=== PATIENT | male | born 1975 | race Caucasian/White ===

== ENCOUNTER 2019-01-27 15:18 | Inpatient (IN) | payer SELFPAY ==
[~2019-01-27] VITALS: Ht 175.3 cm; Wt 71.2 kg
[2019-01-27] VITALS (16 sets, daily range): BP systolic 136–173; BP diastolic 86–112
[2019-01-27] MEDS ORDERED: LIDOCAINE 1% Multi-Dose 20 ML VIAL. ONE (15:28)
[2019-01-27] MEDS ORDERED: IODIXANOL 320 MG/ML 100 ML VIAL. ONE (15:28)
--- NOTE | 2019-01-27 15:38 | PHYS DOC ---
Past Medical History Past Medical History: No Pertinent History Past Surgical History: Other Additional Past Surgical Histo: hand fracture repair Smoking: Cigarettes, 1 Pack Per Day Additional Information: 1 ppd Alcohol Use: None Drug Use: Methamphetamine Adult General Chief Complaint Chief Complaint: CHEST PAIN HPI HPI Patient is a 43 year old [f__sex] who presents with [] Review of Systems Review of Systems Constitutional: Denies fever or chills [] Eyes: Denies change in visual acuity, redness, or eye pain [] HENT: Denies nasal congestion or sore throat [] Respiratory: Denies cough or shortness of breath [] Cardiovascular: No additional information not addressed in HPI [] GI: Denies abdominal pain, nausea, vomiting, bloody stools or diarrhea [] : Denies dysuria or hematuria [] Musculoskeletal: Denies back pain or joint pain [] Integument: Denies rash or skin lesions [] Neurologic: Denies headache, focal weakness or sensory changes [] Endocrine: Denies polyuria or polydipsia [] All other systems were reviewed and found to be within normal limits, except as documented in this note. Current Medications Current Medications Current Medications Medications (Trade) Dose Ordered Sig/Lonnie Start Time Stop Time Status Last Admin Dose Admin Aspirin (Children'S Aspirin) 324 mg 1X ONCE 01/27/19 16:00 01/27/19 16:01 UNV Fentanyl Citrate (Fentanyl 2ml Vial) 100 mcg STK-MED ONCE 01/27/19 15:51 01/27/19 15:52 DC Heparin Sodium (Porcine) (Heparin Sodium) 10,000 unit STK-MED ONCE 01/27/19 15:51 01/27/19 15:52 DC Heparin Sodium/ Sodium Chloride 500 ml @ As Directed STK-MED ONCE 01/27/19 15:30 01/27/19 15:31 DC Iodixanol (Visipaque 320) 100 ml STK-MED ONCE 01/27/19 15:28 01/27/19 15:29 DC Lidocaine HCl (Lidocaine 1% 20ml Vial) 20 ml STK-MED ONCE 01/27/19 15:28 01/27/19 15:29 DC Lorazepam (Ativan Inj) 0.5 mg 1X ONCE 01/27/19 16:00 01/27/19 16:01 DC 01/27/19 15:42 0.5 MG Midazolam HCl (Versed) 2 mg STK-MED ONCE 01/27/19 15:51 01/27/19 15:52 DC Nitroglycerin (Nitroglycerin) 200 mcg STK-MED ONCE 01/27/19 15:51 01/27/19 15:52 DC Tirofiban/Sodium Chloride 100 ml @ As Directed STK-MED ONCE 01/27/19 16:08 01/27/19 16:09 DC Verapamil HCl (Verapamil) 5 mg STK-MED ONCE 01/27/19 15:51 01/27/19 15:52 DC Allergies Allergies Allergies Coded Allergies Type Severity Reaction Last Updated Verified No Known Drug Allergies 01/27/19 No Physical Exam Physical Exam Constitutional: Well developed, well nourished, no acute distress, non-toxic appearance. [] HENT: Normocephalic, atraumatic, bilateral external ears normal, oropharynx moist, no oral exudates, nose normal. [] Eyes: PERRLA, EOMI, conjunctiva normal, no discharge. [] Neck: Normal range of motion, no tenderness, supple, no stridor. [] Cardiovascular:Heart rate regular rhythm, no murmur [] Lungs & Thorax: Bilateral breath sounds clear to auscultation [] Abdomen: Bowel sounds normal, soft, no tenderness, no masses, no pulsatile masses. [] Skin: Warm, dry, no erythema, no rash. [] Back: No tenderness, no CVA tenderness. [] Extremities: No tenderness, no cyanosis, no clubbing, ROM intact, no edema. [] Neurologic: Alert and oriented X 3, normal motor function, normal sensory function, no focal deficits noted. [] Psychologic: Affect normal, judgement normal, mood normal. [] Current Patient Data Vital Signs Vital Signs Date Time Temp Pulse Resp B/P (MAP) Pulse Ox O2 Delivery O2 Flow Rate FiO2 01/27/19 15:22 97.5 82 20 174/111 (132) 99 Room Air 97.5 Lab Values Laboratory Tests Test 01/27/19 15:29 01/27/19 15:30 01/27/19 16:07 POC Troponin I 0.05 ng/ml (<0.08) Prothrombin Time 12.5 SEC (11.7-14.0) Prothrombin Time INR 1.0 (0.8-1.1) Sodium Level 140 mmol/L (136-145) Potassium Level 4.5 mmol/L (3.5-5.1) Chloride Level 103 mmol/L (98-107) Carbon Dioxide Level 24 mmol/L (21-32) Anion Gap 13 (6-14) Blood Urea Nitrogen 18 mg/dL (8-26) Creatinine 1.3 mg/dL (0.7-1.3) Estimated GFR (Cockcroft-Gault) 59.7 BUN/Creatinine Ratio 14 (6-20) Glucose Level 137 mg/dL (70-99) H Calcium Level 9.0 mg/dL (8.5-10.1) Magnesium Level 1.9 mg/dL (1.8-2.4) Total Bilirubin 0.4 mg/dL (0.2-1.0) Aspartate Amino Transferase (AST) 18 U/L (15-37) Alanine Aminotransferase (ALT) 27 U/L (16-63) Alkaline Phosphatase 89 U/L (46-116) Creatine Kinase 109 U/L (39-308) Creatine Kinase MB (Mass) 1.1 ng/mL (0.0-3.6) Creatine Kinase MB Relative Index 1.0 % (0-4) Troponin I Quantitative 0.058 ng/mL (0.000-0.055) RM-Zfj-G-Type Natriuretic Peptide 374 pg/mL (0-124) H Total Protein 7.8 g/dL (6.4-8.2) Albumin 3.6 g/dL (3.4-5.0) Albumin/Globulin Ratio 0.9 (1.0-1.7) L Lipase 101 U/L (73-393) Activated Clotting Time 225 sec (92-181) Laboratory Tests 01/27/19 15:30 EKG EKG [] Radiology/Procedures Radiology/Procedures @1524 NSR at 82bpm, ST elevation V1-V4, ST depression II, III, aVF Course & Med Decision Making Course & Med Decision Making Pertinent Labs and Imaging studies reviewed. (See chart for details) [] Dragon Disclaimer Dragon Disclaimer This electronic medical record was generated, in whole or in part, using a voice recognition dictation system. Departure Departure Impression: Primary Impression: STEMI (ST elevation myocardial infarction) Disposition: ADMITTED INPATIENT Admitting Physician: Other (RIFFEL) Condition: GUARDED Referrals: NO PCP (PCP) Scripts Magnesium Hydroxide (MILK OF MAGNESIA) 400 Mg/5 Ml Oral.susp 2400 MG PO PRN Q12HR PRN for CONSTIPATION for 30 Days, #120 MISC Prov: JAELYN TENORIO MD 01/29/19 Aspirin (ASPIRIN EC) 81 Mg Tablet.dr 81 MG PO DAILYWBKFT for HEART HEALTH for 30 Days, #30 TAB.SR Prov: JAELYN TENORIO MD 01/29/19 Lisinopril (LISINOPRIL) 5 Mg Tablet 2.5 MG PO DAILY for HEART for 30 Days, #15 TAB Prov: JAELYN TENORIO MD 01/29/19 Metoprolol Tartrate (METOPROLOL TARTRATE) 25 Mg Tablet 12.5 MG PO BID for HEART for 30 Days, #30 TAB Prov: JAELYN TENORIO MD 01/29/19 Atorvastatin Calcium (ATORVASTATIN CALCIUM) 40 Mg Tablet 40 MG PO QHS for CHOLESTEROL for 30 Days, #30 TAB Prov: JAELYN TENORIO MD 01/29/19 Prasugrel Hcl (EFFIENT) 10 Mg Tablet 10 MG PO DAILYWBKFT for HEART for 30 Days, #30 TAB Prov: JAELYN TENORIO MD 01/29/19 Critical Care Time Critical care time was 30 minutes which includes time at bedside, spent in discussion of patient's care with specialists and/or family members, with interpretation of laboratory and/or radiological studies and is exclusive of procedures. Problem Qualifiers Primary Impression: STEMI (ST elevation myocardial infarction) Involved coronary artery: unspecified coronary artery Qualified Codes: I21.3 - ST elevation (STEMI) myocardial infarction of unspecified site MENA ORELLANA DO January 27, 2019 15:38
[2019-01-27 15:50] LABS: PROTHROMBIN TIME PATIENT 12.5 SEC (11.7-14.0)
[2019-01-27] MEDS ORDERED: fentaNYL PF VIAL 100 MCG/2 ML VIAL ONE (15:51)
[2019-01-27] MEDS ORDERED: MIDAZOLAM HCL/PF 2 MG/2 ML VIAL. ONE (15:51)
[2019-01-27] MEDS ORDERED: NITROGLYCERIN 200 MCG/2 ML SYRINGE FOR CATH/VASC LAB. ONE (15:51)
[2019-01-27] MEDS ORDERED: HEPARIN for IV BOLUS 10,000 UNIT/10 ML VIAL. ONE (15:51)
[2019-01-27] MEDS ORDERED: VERAPAMIL 5 MG/2 ML VIAL. ONE (15:51)
--- NOTE | 2019-01-27 15:54 | PDOC1 ---
History and Physical Date of Admission Date of Admission DATE: 01/27/19 TIME: 15:51 Identification/Chief Complaint Chief Complaint Chest pain Source Source: Chart review, Patient History of Present Illness History of Present Illness 43 yo smoker with family history of CAD presented to ED with chest pain. He was feeling well until he and his family stopped on their way to move to [place] to live with his parents and ate a meal at [employer]. He felt a tearing pain as though a taco shell was lodged in his esophagus, then a crushing substernal chest pain. In ED EKG at 1354 showed NSR at 82bpm, ST elevation V1-V4, ST d epression II, III, aVF and cardiology was informed, he went to cardiac cathode maker within 20 minutes. Had stenting for anterior ME in proximal LAD and LV dysfunction EF 45% notable. Admitted to ICU for further care and monitoring. 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 He reports use of methamphetamines approximately 1 week ago. Denies any other illicit drug use. He does smoke regularly. Denies any excessive alcohol use. He has a fiancee and 1 daughter. Family History: Coronary Artery Disease Family History: Parent (Father - CAD) Social History Smoke: 1 pack per day ALCOHOL: rare Drugs: Crystal meth Current Problem List Problem List Problems Medical Problems: (1) STEMI (ST elevation myocardial infarction) Status: Acute Current Medications Current Medications Current Medications Iodixanol (Visipaque 320) 100 ml STK-MED ONCE .ROUTE ; Start 01/27/19 at 15:28; Stop 01/27/19 at 15:29; Status DC Lidocaine HCl (Lidocaine 1% 20ml Vial) 20 ml STK-MED ONCE .ROUTE ; Start 01/27/19 at 15:28; Stop 01/27/19 at 15:29; Status DC Heparin Sodium/ Sodium Chloride 1,000 ml @ As Directed STK-MED ONCE .ROUTE ; Start 01/27/19 at 15:28; Stop 01/27/19 at 15:29; Status DC Heparin Sodium/ Sodium Chloride 500 ml @ As Directed STK-MED ONCE .ROUTE ; Start 01/27/19 at 15:30; Stop 01/27/19 at 15:31; Status DC Aspirin (Children'S Aspirin) 324 mg 1X ONCE PO Last administered on 01/27/19at 15:43; Start 01/27/19 at 16:00; Stop 01/27/19 at 16:01 Heparin Sodium (Porcine) (Heparin Sodium) 4,000 unit 1X ONCE IV Last administered on 01/27/19at 15:42; Start 01/27/19 at 16:00; Stop 01/27/19 at 16:01 Aspirin (Children'S Aspirin) 324 mg 1X ONCE PO ; Start 01/27/19 at 16:00; Stop 01/27/19 at 16:01; Status UNV Lorazepam (Ativan Inj) 0.5 mg 1X ONCE IV Last administered on 01/27/19at 15:42; Start 01/27/19 at 16:00; Stop 01/27/19 at 16:01 Allergies Allergies: Coded Allergies: No Known Drug Allergies (Unverified , 01/27/19) ROS General: No: Chills, Night Sweats, Fatigue, Malaise, Appetite, Other PSYCHOLOGICAL ROS: No: Anxiety, Behavioral Disorder, Concentration difficultie, Decreased libido, Depression, Disorientation, Hallucinations, Hostility, Irritablity, Memory difficulties, Mood Swings, Obsessive thoughts, Physical abuse, Sexual abuse, Sleep disturbances, Suicidal ideation, Other Eyes: No Blurry vision, No Decreased vision, No Double vision, No Dry eyes, No Excessive tearing, No Eye Pain, No Itchy Eyes, No Loss of vision, No Photophobia, No Scotomata, No Uses contacts, No Uses glasses, No Other HEENT: No: Heacaches, Visual Changes, Hearing change, Nasal congestion, Nasal discharge, Oral lesions, Sinus pain, Sore Throat, Epistaxis, Sneezing, Snoring, Tinnitus, Vertigo, Vocal changes, Other ALLERGY AND IMMUNOLOGY: No: Hives, Insect Bite Sensitivity, Itchy/Watery Eyes, Nasal Congestion, Post Nasal Drip, Seasonal Allergies, Other Hematological and Lymphatic: No: Bleeding Problems, Blood Clots, Blood Transfusions, Brusing, Night Sweats, Pallor, Swollen Lymph Nodes, Other ENDOCRINE: No: Breast Changes, Galactorrhea, Hair Pattern Changes, Hot Flashes, Malaise/lethargy, Mood Swings, Palpitations, Polydipsia/polyuria, Skin Changes, Temperature Intolerance, Unexpected Weight Changes, Other Breast: No New/Changing Breast Lumps, No Nipple changes, No Nipple discharge, No Other Respiratory: No: Cough, Hemoptysis, Orthopnea, Pleuritic Pain, Shortness of breath, SOB with excertion, Sputum Changes, Stridor, Tachypnea, Wheezing, Other Cardiovascular: yes Chest Pain; No Palpitations, No Orthopnea, No Paroxysmal Noc. Dyspnea, No Edema, No Lt Headedness, No Other Gastrointestinal: No Nausea, No Vomiting, No Abdominal Pain, No Diarrhea, No Constipation, No Melena, No Hematochezia, No Other Genitourinary: No Dysuria, No Frequency, No Incontinence, No Hematuria, No Retention, No Discharge, No Urgency, No Pain, No Flank Pain, No Other, No , No , No , No , No , No , No Musculoskeletal: No Gait Disturbance, No Joint Pain, No Joint Stiffness, No Joint Swelling, No Muscle Pain, No Muscular Weakness, No Pain In:, No Swelling In:, No Other Neurological: No Behavorial Changes, No Bowel/Bladder ControlChng, No Confusion, No Dizziness, No Gait Disturbance, No Headaches, No Impaired Coord/balance, No Memory Loss, No Numbness/Tingling, No Seizures, No Speech Problems, No Tremors, No Visual Changes, No Weakness, No Other Skin: No Dry Skin, No Eczema, No Hair Changes, No Lumps, No Mole Changes, No Mo ttling, No Nail Changes, No Pruritus, No Rash, No Skin Lesion Changes, No Other, No Acne Physical Exam General: Alert, Oriented X3, Cooperative, mild distress HEENT: Atraumatic, PERRLA, EOMI, Mucous membr. moist/pink Lungs: Clear to auscultation, Normal air movement Heart: S1S2, RRR, no gallops, no murmurs Abdomen: Normal bowel sounds, Soft, No tenderness, No hepatosplenomegaly, No masses Rectal Exam: not examined Extremities: No clubbing, No cyanosis, No edema, Normal pulses, No tenderness/swelling Skin: No rashes, No breakdown, No significant lesion Neuro: Normal gait, Normal speech, Strength at 5/5 X4 ext, Normal tone, Sensation intact, Cranial nerves 3-12 NL, Reflexes 2+ Psych/Mental Status: Mental status NL, Mood NL Vitals Vitals Vital Signs Date Time Temp Pulse Resp B/P (MAP) Pulse Ox O2 Delivery O2 Flow Rate FiO2 01/27/19 15:22 97.5 82 20 174/111 (132) 99 Room Air 97.5 Labs Labs Laboratory Tests Test 01/27/19 15:29 01/27/19 15:30 Bedside Troponin I 0.05 ng/ml (<0.08) Prothrombin Time 12.5 SEC (11.7-14.0) Prothromb Time International Ratio 1.0 (0.8-1.1) Laboratory Tests Test 01/27/19 15:29 01/27/19 15:30 Bedside Troponin I 0.05 ng/ml (<0.08) Prothrombin Time 12.5 SEC (11.7-14.0) Prothromb Time International Ratio 1.0 (0.8-1.1) VTE Prophylaxis Ordered VTE Prophylaxis Devices: Yes VTE Pharmacological Prophylaxi: Yes Assessment/Plan Assessment/Plan A/P: STEMI - given ASA, to cathode maker. Cardiology following. Will check UDS. S/p SHABANA to proximal LAD Smoker - counseled on cessation Elevated blood pressure without diagnosis of HTN - 174/111 in ED, likely from STEMI stress. Will monitor. Will need BB regardless, start metoprolol post-cath Decreased EF - will start MOHSEN if cardiology agrees FEN - Cardiac diet PPX - Heparin FULL CODE ICU admit for STEMI ABDULLAHI ADLER MD January 27, 2019 15:54
[2019-01-27 15:55] LABS: CREATININE 1.3 mg/dL (0.7-1.3); GFR 59.7; POTASSIUM 4.5 mmol/L (3.5-5.1)
--- NOTE | 2019-01-27 15:56 | RAD ---
Single view chest dated 01/27/2019: No comparison available. Clinical Indication: Chest pain. Findings: Single upright portable exam of the chest was performed. Heart size and mediastinal contours are within normal limits given technique. The lungs are clear without evidence of focal consolidation. Vascular interstitium is within normal limits. Lungs are somewhat hyperinflated. Impression:: No acute radiographic abnormality. Electronically signed by: Joby Krishnamurthy MD (01/27/2019 3:53 PM) [id number]
[2019-01-27] MEDS ORDERED: ASPIRIN CHEWABLE 81 MG TABLET. PO ONE ×2 (16:00)
[2019-01-27] MEDS ORDERED: HEPARIN for IV BOLUS 10,000 UNIT/10 ML VIAL. IV ONE (16:00)
[2019-01-27 16:02] LABS: ALBUMIN 3.6 g/dL (3.4-5.0); ALBUMIN/GLOBULIN RATIO 0.9 (1.0-1.7); MAGNESIUM 1.9 mg/dL (1.8-2.4); TOTAL BILIRUBIN 0.4 mg/dL (0.2-1.0); TOTAL PROTEIN 7.8 g/dL (6.4-8.2)
[2019-01-27] MEDS ORDERED: TIROFIBAN 5MG -0.9% NS 100 ML IV ONE (16:08)
--- NOTE | 2019-01-27 16:17 | EKG ---
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
[2019-01-27] MEDS ORDERED: HEPARIN for IV BOLUS 10,000 UNIT/10 ML VIAL. IART ONE (16:30)
[2019-01-27] MEDS ORDERED: LIDOCAINE 1% Multi-Dose 20 ML VIAL. INJ ONE (16:30)
[2019-01-27] MEDS ORDERED: IODIXANOL 320 MG/ML 100 ML VIAL. IART ONE (16:30)
[2019-01-27] MEDS ORDERED: VERAPAMIL 5 MG/2 ML VIAL. IART ONE (16:30)
[2019-01-27] MEDS ORDERED: PRASUGREL 10 MG TABLET. PO ONE (16:30)
[2019-01-27] MEDS ORDERED: fentaNYL PF VIAL 100 MCG/2 ML VIAL IV ONE (16:30)
[2019-01-27] MEDS ORDERED: NITROGLYCERIN 200 MCG/2 ML SYRINGE FOR CATH/VASC LAB. IART ONE (16:30)
[2019-01-27] MEDS ORDERED: MIDAZOLAM HCL/PF 2 MG/2 ML VIAL. IV ONE (16:30)
[2019-01-27] MEDS ORDERED: TIROFIBAN 5MG -0.9% NS 100 ML IV PRN (16:30)
--- NOTE | 2019-01-27 16:55 | CONS ---
DATE OF CONSULTATION: 01/27/2019 REASON FOR CONSULTATION: STEMI. HISTORY OF PRESENT ILLNESS: The patient is a 43-year-old man who was in his usual state of health and was driving to [place] as he recently sold his house here and was moving out there to live with his parents. En route, he pulled over to [facility] due to severe crushing chest pain. Initial EKG revealed anterior ST elevation myocardial infarction and therefore the STEMI team was activated. The patient was taken to the labor contract analyst emergently after verbal consent. PAST MEDICAL HISTORY: None. 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 He reports use of methamphetamines approximately 1 week ago. Denies any other illicit drug use. He does smoke regularly. Denies any excessive alcohol use. He has a fiancee and 1 daughter. FAMILY HISTORY: Notable for coronary artery disease. ALLERGIES: No known drug allergies. CURRENT CARDIAC MEDICATIONS: None. REVIEW OF SYSTEMS: Negative for 10 of 14 systems reviewed, unless otherwise mentioned above in HPI. PHYSICAL EXAMINATION: VITAL SIGNS: Afebrile, weight 200 pounds, blood pressure 140/80, heart rate 78, pulse ox 98% on 2 liters. GENERAL: He was very anxious, but otherwise alert and oriented, no acute distress after presenting to the labor contract analyst. HEAD AND NECK: Unremarkable. CARDIAC: Regular rate and rhythm without any obvious murmurs, rubs or gallops. LUNGS: Notable for bilateral wheezing. ABDOMEN: Soft, nontender. EXTREMITIES: No clubbing, cyanosis or edema. NEUROLOGIC: No focal deficits. MUSCULOSKELETAL: No trauma. Peripheral pulses were intact at 1+ throughout upper and lower extremities. DIAGNOSTIC STUDIES: Initial EKG revealed significant [address] elevations in the precordial and lateral leads. This was suggestive of possible proximal LAD stenosis, which was confirmed by cardiac catheterization. Cardiac catheterization revealed a 1 vessel coronary artery disease with a proximal 99% stenosis involving the left anterior descending artery. This was successfully stented with a 3.5 x 18 mm drug-eluting stent. LABS: Initial creatinine was unremarkable. CBC is pending. IMPRESSION: 1. Anterior ST elevation myocardial infarction. 2. Acute on chronic diastolic heart failure. 3. Mild LV systolic dysfunction with ejection fraction of 45% with anterolateral wall hypokinesis. RECOMMENDATIONS: 1. Admit to the hospital with the initiation of aspirin 81 mg daily, prasugrel 10 mg daily, lovastatin as the patient is unable to afford any medications due to lack of insurance. 2. We will obtain an echocardiogram routinely prior to discharge. Anticipate discharge in the next 48 hours. Thank you for this consultation. ZACH HUFF MD DR: DAMARIS/erin JOB#: [id number] / [id number]
--- NOTE | 2019-01-27 17:30 | NUR ---
ADMISSION NOTE: Pt arrived to RM 110 from electrical laboratory technician for STEMI. Pt A&Ox4, SR. Aggrestat and NS infusing. See Vascular assessment. TR band in place. Edi Myers and children at bedside. Pt lying flat, minimal oozing at right groin site, marked. WIll monitor.
[2019-01-27] MEDS: NICOTINE 21MG PATCH. TD SCH (17:42)
[2019-01-27 18:05] LABS: BASO # 0.1 x10^3/uL (0.0-0.2); BASO % 1 % (0-3); EOS # 0.2 x10^3/uL (0.0-0.7); EOS % 2 % (0-3); HEMATOCRIT 44.7 % (39.0-53.0); HEMOGLOBIN 14.8 g/dL (13.0-17.5); LYMPH # 2.1 x10^3/uL (1.0-4.8); LYMPH % 20 % (24-48); MEAN CORPUSCULAR HEMOGLOBIN 31 pg (25-35); MEAN CORPUSCULAR HGB CONC 33 g/dL (31-37); MEAN CORPUSCULAR VOLUME 93 fL (79-100); MONO # 0.6 x10^3/uL (0.0-1.1); MONO % 6 % (0-9); NEUT # 7.7 x10^3uL (1.8-7.7); NEUT % 72 % (31-73); PLATELET COUNT 314 x10^3/uL (140-400); RED BLOOD COUNT 4.83 x10^6/uL (4.30-5.70); RED CELL DISTRIBUTION WIDTH 13.9 % (11.5-14.5); WHITE BLOOD COUNT 10.7 x10^3/uL (4.0-11.0)
[2019-01-27] MEDS: hydrALAZINE 20 MG/ML VIAL. IVP PRN (19:28)
[2019-01-27] MEDS ORDERED: ONDANSETRON PF 4 MG/2 ML VIAL. IV PRN (19:45)
[2019-01-27] MEDS ORDERED: MAGNESIUM HYDROXIDE 2,400 MG/30 ML ORAL.SUSP. PO PRN (19:45)
[2019-01-27] MEDS ORDERED: MORPHINE SULFATE 2 MG/ML VIAL. IV PRN (19:45)
[2019-01-27 22:20] LABS: AMPHETAMINE/METHAMPHETAMINE NEG (NEG); BARBITURATES NEG (NEG); BENZODIAZEPINES POS (NEG); CANNABINOIDS NEG (NEG); COCAINE NEG (NEG); METHADONE NEG (NEG); OPIATES NEG (NEG); PHENCYCLIDINE NEG (NEG)
--- NOTE | 2019-01-27 23:56 | NUR ---
Patient continues to have "just a little chest discomfort" rates <1/10 on Numeric pain scale and 2200 Trop resulted at 54.492; Dr Bellamy paged. Dr Pete returned page, notified of above--no new orders, continue POC.
[2019-01-28] VITALS (18 sets, daily range): BP systolic 95–170; BP diastolic 63–111
[2019-01-28] MEDS: hydrALAZINE 20 MG/ML VIAL. IVP PRN (00:59)
[2019-01-28 05:31] LABS: BASO % 0 % (0-3); EOS # 0.2 x10^3/uL (0.0-0.7); EOS % 2 % (0-3); HEMATOCRIT 45.6 % (39.0-53.0); HEMOGLOBIN 15.2 g/dL (13.0-17.5); LYMPH # 2.1 x10^3/uL (1.0-4.8); LYMPH % 18 % (24-48); MEAN CORPUSCULAR HEMOGLOBIN 31 pg (25-35); MEAN CORPUSCULAR HGB CONC 33 g/dL (31-37); MEAN CORPUSCULAR VOLUME 92 fL (79-100); MONO # 1.1 x10^3/uL (0.0-1.1); MONO % 9 % (0-9); NEUT # 8.4 x10^3uL (1.8-7.7); NEUT % 71 % (31-73); PLATELET COUNT 321 x10^3/uL (140-400); RED BLOOD COUNT 4.98 x10^6/uL (4.30-5.70); RED CELL DISTRIBUTION WIDTH 14.2 % (11.5-14.5); WHITE BLOOD COUNT 11.8 x10^3/uL (4.0-11.0)
[2019-01-28 05:58] LABS: GFR 80.8; POTASSIUM 3.8 mmol/L (3.5-5.1)
[2019-01-28 06:14] LABS: CHOLESTEROL/HDL RATIO 4.5
--- NOTE | 2019-01-28 06:35 | NUR ---
Pt c/o LEO, rating 3/10 on numeric pain scale, only pain med ordered is morphine, paged pcp. Dr. Mueller returned page, notified of LEO; orders recieved for Tylenol 650 mg PO PRN Q4HRS. See orders.
[2019-01-28] MEDS ORDERED: ACETAMINOPHEN 325 MG TABLET. PO PRN (06:45)
[2019-01-28] MEDS ORDERED: ASPIRIN 325 MG TABLET PO SCH (08:00)
--- NOTE | 2019-01-28 08:06 | CARD ---
MR#: [id number] Date of Study: 01/27/2019 Ordering Physician: ZACH BELLAMY, Referring Physician: ABDULLAHI ADLER, Tech: RT Reshma (R) SHAN APPROVED REPORT Technologist: RT Reshma (R) SHAN Nurse: Migdalia Banegas R.N. Procedure(s) performed: MOD SED 47 MIN FLUORO TIME 5.7 MIN DAP 1075 CONTRAST 121ML VISI LHC, coronary angiography, PCI to the LAD HISTORY The patient is a 43 year-old male with a history of : tobacco history() . INDICATION The indication(s) include : STEMI . PROCEDURE NARRATIVE INFORMED CONSENT: After explaining the risks and benefits of the procedure and alternatives, informed consent was obtained. The patient was brought electively to the cardiac catheterization lab. A timeout was performed confi rming the patient's name, date of , procedure, and site of procedure. All necessary personnel w ere wearing the appropriate protective equipment and radiation monitor devices. (See nursing notes for medications administered). ACCESS: The right wrist was sterilely prepped and draped in the usual fashion. The right wrist was infiltrat ed with 1 mL of 2% lidocaine for subcutaneous anesthesia. A 6 [place] Terumo glide sheath was inserte d into the right radial artery without difficulty. Due to a radial loop and significant spasm, advancement of the catheters was difficult. Therefore, th is access site was abandoned and a RCFA arterial access was obtained via the modified seldinger techn ique and a 6Fr sheath was placed. CORONARY ANGIOGRAPHY: Right and left coronary angiography was performed using a 6Fr JR4 and JL4 catheters. Left ventricula r end diastolic pressure was obtained with a pigtail catheter and pullback was performed after left v entriculography. All catheter exchanges and advancements were performed over a guidewire. FINDINGS: HEMODYNAMICS: LVEDP 28 mm Hg No gradient on LV to aortic pullback. AO: 128/78 LEFT VENTRICULOGRAM: EF 45% Anterobasal: Normal. Anterolateral: Severely hypokinetic. Apical: Akinetic Diaphragmatic: Normal Posterobasal: Normal CORONARY ANGIOGRAPHY: LM is a large caliber vessel with normal angiographic appearance. LAD is a large caliber vessel with a proximal 99% subtotal lesion. D1 is a moderate caliber vessel with a mid 50% stenosis. Ramus is a moderate caliber vessel with a proximal 20% stenosis. LCx is a small caliber non-dominant vessel with normal angiographic appearance. RCA is a large caliber dominant vessel with mild irregularities of up to 30%. RPDA and RPL are moderate caliber vessels with normal angiographic appearance. INTERVENTIONAL TECHNIQUE: PCI OF THE LAD Based upon the present symptoms, EKG changes and angiographic findings of proximal LAD stenosis and i ntervention was performed. Heparin and tirofiban were used for anticoagulation. Through a 6 [place] EB U 3.5 guide catheter a pro-water wire was advanced to the distal LAD. Balloon angioplasty was perform ed with a 2.5 x 12 mm balloon and the lesion was stented with a 3.5 x 18 mm drug-eluting stent. The p roximal half of the stent was postdilated with a 3.5 mm noncompliant balloon. Post-PCI angiography de monstrated excellent stent expansion with GALLITO-3 flow in the vessel without any evidence of guide or wire related complications. The patient received 60 mg of Effient at case completion. CLOSURE: At case completion the right radial sheath was removed and a Terumo radial band was applied with 13 m l of air. COMPLICATIONS: The patient tolerated the procedure well and there were no immediate complications. GALLITO Flow GALLITO Flow (Pre-Intervention): GALLITO-1 GALLITO Flow (Post-Intervention): GALLITO-3 Conclusion 1. Anterior STEMI treated with a 3.5/18 mm SHABANA. 2. Acute on chronic decompensated systolic and diastolic HF 3. Mild LV dysfunction. EF 45% Recommendations ASA 81mg daily Prasugrel 10mg daily for 1 full year if tolerated. Lovasatatin therapy He is on the way to [place]. Needs to have follow up at his new residence. Counseled on drug and tobacco cessation Signed by : Zach Bellamy, Electronically Approved : 01/28/2019 08:05:29
[2019-01-28] MEDS: LISINOPRIL 5 MG TABLET. PO SCH (09:00)
[2019-01-28] MEDS ORDERED: HEPARIN for SUB-Q USE 5,000 UNIT/ML VIAL. SQ SCH (09:00)
[2019-01-28] MEDS: NICOTINE 21MG PATCH. TD SCH (09:13)
[2019-01-28] MEDS: METOPROLOL TART IMMED RELEASE 25 MG TABLET. PO SCH ×2 (09:14→20:58)
[2019-01-28] MEDS: PRASUGREL 10 MG TABLET. PO SCH (09:15)
--- NOTE | 2019-01-28 09:49 | NUR ---
SW reviewed pt's medical chart and evaluated for potential dc needs. Pt is in the process of moving to [place] with his spouse to live with his parents. Pt was admitted for chest pain. Pt is uninsured and not eligible for services unless he can pay out of pocket. SW will continue to follow and be available for dc needs.
--- NOTE | 2019-01-28 10:01 | PDOC ---
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 Cardiology following. Will check UDS. S/p SHABANA to proximal LAD Smoker - counseled on cessation Elevated blood pressure without diagnosis of HTN - 174/111 in ED, likely from STEMI stress. Will monitor. Will need BB regardless, start metoprolol post-cath Decreased EF - will start MOHSEN if cardiology agrees Anterior STEMI treated with a 3.5/18 mm SHABANA. Acute on chronic decompensated systolic and diastolic HF Mild LV dysfunction. EF 45% hx meth abuse Recommendations FEN - Cardiac diet PPX - Heparin FULL CODE ICU admit for STEMI 32 min cc time Vitals Vitals Vital Signs Date Time Temp Pulse Resp B/P (MAP) Pulse Ox O2 Delivery O2 Flow Rate FiO2 01/28/19 09:14 109 120/83 01/28/19 06:00 24 99 Room Air 01/28/19 04:00 98.7 98.7 01/27/19 16:50 2.0 Physical Exam General: Alert, Oriented X3, Cooperative, No acute distress, mild distress Heart: Regular rate, Normal S1, Normal S2 Lungs: Clear Abdomen: Normal bowel sounds, Soft, No tenderness, No hepatosplenomegaly, No masses Extremities: No clubbing, No cyanosis, No edema, Normal pulses, No tenderness/swelling Skin: No rashes, No breakdown, No significant lesion Labs LABS No comparison available. Clinical Indication: Chest pain. Findings: Single upright portable exam of the chest was performed. Heart size and mediastinal contours are within normal limits given technique. The lungs are clear without evidence of focal consolidation. Vascular interstitium is within normal limits. Lungs are somewhat hyperinflated. Impression:: No acute radiographic abnormality. Electronically signed by: Joby Krishnamurthy MD (01/27/2019 3:53 PM) [facility] DICTATED and SIGNED BY: JOBY KRISHNAMURTHY MD DATE: 01/27/19 1553 Technologist: Eloise Mukherjee RT (R) Nurse: Migdalia Banegas R.N. Procedure(s) performed: MOD SED 47 MIN FLUORO TIME 5.7 MIN DAP 1075 CONTRAST 121ML VISI LHC, coronary angiography, PCI to the LAD HISTORY The patient is a 43 year-old male with a history of : tobacco history() . INDICATION The indication(s) include : STEMI . PROCEDURE NARRATIVE INFORMED CONSENT: After explaining the risks and benefits of the procedure and alternatives, informed consent was obtained. The patient was brought electively to the cardiac catheterization lab. A timeout was performed confirming the patient's name, date of , procedure, and site of procedure. All necessary personnel were wearing the appropriate protective equipment and radiation monitor devices. (See nursing notes for medications administered). ACCESS: The right wrist was sterilely prepped and draped in the usual fashion. The right wrist was infiltrated with 1 mL of 2% lidocaine for subcutaneous anesthesia. A 6 Kis[place]ili Terumo glide sheath was inserted into the right radial artery without difficulty. Due to a radial loop and significant spasm, advancement of the catheters was difficult. Therefore, this access site was abandoned and a RCFA arterial access was obtained via the modified seldinger technique and a 6Fr sheath was placed. CORONARY ANGIOGRAPHY: Right and left coronary angiography was performed using a 6Fr JR4 and JL4 catheters. Left ventricular end diastolic pressure was obtained with a pigtail catheter and pullback was performed after left ventriculography. All catheter exchanges and advancements were performed over a guidewire. FINDINGS: HEMODYNAMICS: LVEDP 28 mm Hg No gradient on LV to aortic pullback. AO: 128/78 LEFT VENTRICULOGRAM: EF 45% Anterobasal: Normal. Anterolateral: Severely hypokinetic. Apical: Akinetic Diaphragmatic: Normal Posterobasal: Normal CORONARY ANGIOGRAPHY: LM is a large caliber vessel with normal angiographic appearance. LAD is a large caliber vessel with a proximal 99% subtotal lesion. D1 is a moderate caliber vessel with a mid 50% stenosis. Ramus is a moderate caliber vessel with a proximal 20% stenosis. LCx is a small caliber non-dominant vessel with normal angiographic appearance. RCA is a large caliber dominant vessel with mild irregularities of up to 30%. RPDA and RPL are moderate caliber vessels with normal angiographic appearance. INTERVENTIONAL TECHNIQUE: PCI OF THE LAD Based upon the present symptoms, EKG changes and angiographic findings of proximal LAD stenosis and intervention was performed. Heparin and tirofiban were used for anticoagulation. Through a 6 Kisw[place]ili EBU 3.5 guide catheter a pro-water wire was advanced to the distal LAD. Balloon angioplasty was performed with a 2.5 x 12 mm balloon and the lesion was stented with a 3.5 x 18 mm drug-eluting stent. The proximal half of the stent was postdilated with a 3.5 mm noncompliant balloon. Post-PCI angiography demonstrated excellent stent expansion with GALLITO-3 flow in the vessel without any evidence of guide or wire related complications. The patient received 60 mg of Effient at case completion. CLOSURE: At case completion the right radial sheath was removed and a Terumo radial band was applied with 13 ml of air. COMPLICATIONS: The patient tolerated the procedure well and there were no immediate complications. GALLITO Flow GALLITO Flow (Pre-Intervention): GALLITO-1 GALLITO Flow (Post-Intervention): GALLITO-3 Conclusion 1. Anterior STEMI treated with a 3.5/18 mm SHABANA. 2. Acute on chronic decompensated systolic and diastolic HF 3. Mild LV dysfunction. EF 45% Recommendations ASA 81mg daily Prasugrel 10mg daily for 1 full year if tolerated. Lovasatatin therapy He is on the way to [place]. Needs to have follow up at his new residence. Counseled on drug and tobacco cessation Signed by : Christ Bellamy, Electronically Approved : 01/28/2019 08:05:29 Laboratory Tests Test 01/27/19 15:29 01/27/19 15:30 01/27/19 16:07 01/27/19 17:55 Bedside Troponin I 0.05 ng/ml (<0.08) Prothrombin Time 12.5 SEC (11.7-14.0) Prothromb Time International Ratio 1.0 (0.8-1.1) Sodium Level 140 mmol/L (136-145) Potassium Level 4.5 mmol/L (3.5-5.1) Chloride Level 103 mmol/L (98-107) Carbon Dioxide Level 24 mmol/L (21-32) Anion Gap 13 (6-14) Blood Urea Nitrogen 18 mg/dL (8-26) Creatinine 1.3 mg/dL (0.7-1.3) Estimated GFR (Cockcroft-Gault) 59.7 BUN/Creatinine Ratio 14 (6-20) Glucose Level 137 mg/dL (70-99) Calcium Level 9.0 mg/dL (8.5-10.1) Magnesium Level 1.9 mg/dL (1.8-2.4) Total Bilirubin 0.4 mg/dL (0.2-1.0) Aspartate Amino Transf (AST/SGOT) 18 U/L (15-37) Alanine Aminotransferase (ALT/SGPT) 27 U/L (16-63) Alkaline Phosphatase 89 U/L (46-116) Creatine Kinase 109 U/L (39-308) Creatine Kinase MB (Mass) 1.1 ng/mL (0.0-3.6) Creatine Kinase MB Relative Index 1.0 % (0-4) Troponin I Quantitative 0.058 ng/mL (0.000-0.055) 22.854 ng/mL (0.000-0.055) IS-Oqz-M-Type Natriuretic Peptide 374 pg/mL (0-124) Total Protein 7.8 g/dL (6.4-8.2) Albumin 3.6 g/dL (3.4-5.0) Albumin/Globulin Ratio 0.9 (1.0-1.7) Lipase 101 U/L (73-393) Activated Clotting Time 225 sec (92-181) White Blood Count 10.7 x10^3/uL (4.0-11.0) Red Blood Count 4.83 x10^6/uL (4.30-5.70) Hemoglobin 14.8 g/dL (13.0-17.5) Hematocrit 44.7 % (39.0-53.0) Mean Corpuscular Volume 93 fL (79-100) Mean Corpuscular Hemoglobin 31 pg (25-35) Mean Corpuscular Hemoglobin Concent 33 g/dL (31-37) Red Cell Distribution Width 13.9 % (11.5-14.5) Platelet Count 314 x10^3/uL (140-400) Neutrophils (%) (Auto) 72 % (31-73) Lymphocytes (%) (Auto) 20 % (24-48) Monocytes (%) (Auto) 6 % (0-9) Eosinophils (%) (Auto) 2 % (0-3) Basophils (%) (Auto) 1 % (0-3) Neutrophils # (Auto) 7.7 x10^3uL (1.8-7.7) Lymphocytes # (Auto) 2.1 x10^3/uL (1.0-4.8) Monocytes # (Auto) 0.6 x10^3/uL (0.0-1.1) Eosinophils # (Auto) 0.2 x10^3/uL (0.0-0.7) Basophils # (Auto) 0.1 x10^3/uL (0.0-0.2) Test 01/27/19 22:00 01/28/19 05:00 Troponin I Quantitative 54.492 ng/mL (0.000-0.055) Urine Opiates Screen Neg (NEG) Urine Methadone Screen Neg (NEG) Urine Barbiturates Neg (NEG) Urine Phencyclidine Screen Neg (NEG) Urine Amphetamine/Methamphetamine Neg (NEG) Urine Benzodiazepines Screen Pos (NEG) Urine Cocaine Screen Neg (NEG) Urine Cannabinoids Screen Neg (NEG) Urine Ethyl Alcohol Neg (NEG) White Blood Count 11.8 x10^3/uL (4.0-11.0) Red Blood Count 4.98 x10^6/uL (4.30-5.70) Hemoglobin 15.2 g/dL (13.0-17.5) Hematocrit 45.6 % (39.0-53.0) Mean Corpuscular Volume 92 fL (79-100) Mean Corpuscular Hemoglobin 31 pg (25-35) Mean Corpuscular Hemoglobin Concent 33 g/dL (31-37) Red Cell Distribution Width 14.2 % (11.5-14.5) Platelet Count 321 x10^3/uL (140-400) Neutrophils (%) (Auto) 71 % (31-73) Lymphocytes (%) (Auto) 18 % (24-48) Monocytes (%) (Auto) 9 % (0-9) Eosinophils (%) (Auto) 2 % (0-3) Basophils (%) (Auto) 0 % (0-3) Neutrophils # (Auto) 8.4 x10^3uL (1.8-7.7) Lymphocytes # (Auto) 2.1 x10^3/uL (1.0-4.8) Monocytes # (Auto) 1.1 x10^3/uL (0.0-1.1) Eosinophils # (Auto) 0.2 x10^3/uL (0.0-0.7) Basophils # (Auto) 0.0 x10^3/uL (0.0-0.2) Sodium Level 138 mmol/L (136-145) Potassium Level 3.8 mmol/L (3.5-5.1) Chloride Level 105 mmol/L (98-107) Carbon Dioxide Level 20 mmol/L (21-32) Anion Gap 13 (6-14) Blood Urea Nitrogen 14 mg/dL (8-26) Creatinine 1.0 mg/dL (0.7-1.3) Estimated GFR (Cockcroft-Gault) 80.8 Glucose Level 164 mg/dL (70-99) Calcium Level 8.0 mg/dL (8.5-10.1) Triglycerides Level 113 mg/dL (0-150) Cholesterol Level 148 mg/dL (0-200) LDL Cholesterol, Calculated 92 mg/dL (0-100) VLDL Cholesterol, Calculated 23 mg/dL (0-40) Non-HDL Cholesterol Calculated 115 mg/dL (0-129) HDL Cholesterol 33 mg/dL (40-60) Cholesterol/HDL Ratio 4.5 Assessment and Plan Assessmemt and Plan Problems Medical Problems: (1) STEMI (ST elevation myocardial infarction) Status: Acute Comment Review of Relevant I have reviewed the following items greyson (where applicable) has been applied. Labs Laboratory Tests Test 01/27/19 15:29 01/27/19 15:30 01/27/19 16:07 01/27/19 17:55 Bedside Troponin I 0.05 ng/ml (<0.08) Prothrombin Time 12.5 SEC (11.7-14.0) Prothromb Time International Ratio 1.0 (0.8-1.1) Sodium Level 140 mmol/L (136-145) Potassium Level 4.5 mmol/L (3.5-5.1) Chloride Level 103 mmol/L (98-107) Carbon Dioxide Level 24 mmol/L (21-32) Anion Gap 13 (6-14) Blood Urea Nitrogen 18 mg/dL (8-26) Creatinine 1.3 mg/dL (0.7-1.3) Estimated GFR (Cockcroft-Gault) 59.7 BUN/Creatinine Ratio 14 (6-20) Glucose Level 137 mg/dL (70-99) Calcium Level 9.0 mg/dL (8.5-10.1) Magnesium Level 1.9 mg/dL (1.8-2.4) Total Bilirubin 0.4 mg/dL (0.2-1.0) Aspartate Amino Transf (AST/SGOT) 18 U/L (15-37) Alanine Aminotransferase (ALT/SGPT) 27 U/L (16-63) Alkaline Phosphatase 89 U/L (46-116) Creatine Kinase 109 U/L (39-308) Creatine Kinase MB (Mass) 1.1 ng/mL (0.0-3.6) Creatine Kinase MB Relative Index 1.0 % (0-4) Troponin I Quantitative 0.058 ng/mL (0.000-0.055) 22.854 ng/mL (0.000-0.055) SW-Lsw-Q-Type Natriuretic Peptide 374 pg/mL (0-124) Total Protein 7.8 g/dL (6.4-8.2) Albumin 3.6 g/dL (3.4-5.0) Albumin/Globulin Ratio 0.9 (1.0-1.7) Lipase 101 U/L (73-393) Activated Clotting Time 225 sec (92-181) White Blood Count 10.7 x10^3/uL (4.0-11.0) Red Blood Count 4.83 x10^6/uL (4.30-5.70) Hemoglobin 14.8 g/dL (13.0-17.5) Hematocrit 44.7 % (39.0-53.0) Mean Corpuscular Volume 93 fL (79-100) Mean Corpuscular Hemoglobin 31 pg (25-35) Mean Corpuscular Hemoglobin Concent 33 g/dL (31-37) Red Cell Distribution Width 13.9 % (11.5-14.5) Platelet Count 314 x10^3/uL (140-400) Neutrophils (%) (Auto) 72 % (31-73) Lymphocytes (%) (Auto) 20 % (24-48) Monocytes (%) (Auto) 6 % (0-9) Eosinophils (%) (Auto) 2 % (0-3) Basophils (%) (Auto) 1 % (0-3) Neutrophils # (Auto) 7.7 x10^3uL (1.8-7.7) Lymphocytes # (Auto) 2.1 x10^3/uL (1.0-4.8) Monocytes # (Auto) 0.6 x10^3/uL (0.0-1.1) Eosinophils # (Auto) 0.2 x10^3/uL (0.0-0.7) Basophils # (Auto) 0.1 x10^3/uL (0.0-0.2) Test 01/27/19 22:00 01/28/19 05:00 Troponin I Quantitative 54.492 ng/mL (0.000-0.055) Urine Opiates Screen Neg (NEG) Urine Methadone Screen Neg (NEG) Urine Barbiturates Neg (NEG) Urine Phencyclidine Screen Neg (NEG) Urine Amphetamine/Methamphetamine Neg (NEG) Urine Benzodiazepines Screen Pos (NEG) Urine Cocaine Screen Neg (NEG) Urine Cannabinoids Screen Neg (NEG) Urine Ethyl Alcohol Neg (NEG) White Blood Count 11.8 x10^3/uL (4.0-11.0) Red Blood Count 4.98 x10^6/uL (4.30-5.70) Hemoglobin 15.2 g/dL (13.0-17.5) Hematocrit 45.6 % (39.0-53.0) Mean Corpuscular Volume 92 fL (79-100) Mean Corpuscular Hemoglobin 31 pg (25-35) Mean Corpuscular Hemoglobin Concent 33 g/dL (31-37) Red Cell Distribution Width 14.2 % (11.5-14.5) Platelet Count 321 x10^3/uL (140-400) Neutrophils (%) (Auto) 71 % (31-73) Lymphocytes (%) (Auto) 18 % (24-48) Monocytes (%) (Auto) 9 % (0-9) Eosinophils (%) (Auto) 2 % (0-3) Basophils (%) (Auto) 0 % (0-3) Neutrophils # (Auto) 8.4 x10^3uL (1.8-7.7) Lymphocytes # (Auto) 2.1 x10^3/uL (1.0-4.8) Monocytes # (Auto) 1.1 x10^3/uL (0.0-1.1) Eosinophils # (Auto) 0.2 x10^3/uL (0.0-0.7) Basophils # (Auto) 0.0 x10^3/uL (0.0-0.2) Sodium Level 138 mmol/L (136-145) Potassium Level 3.8 mmol/L (3.5-5.1) Chloride Level 105 mmol/L (98-107) Carbon Dioxide Level 20 mmol/L (21-32) Anion Gap 13 (6-14) Blood Urea Nitrogen 14 mg/dL (8-26) Creatinine 1.0 mg/dL (0.7-1.3) Estimated GFR (Cockcroft-Gault) 80.8 Glucose Level 164 mg/dL (70-99) Calcium Level 8.0 mg/dL (8.5-10.1) Triglycerides Level 113 mg/dL (0-150) Cholesterol Level 148 mg/dL (0-200) LDL Cholesterol, Calculated 92 mg/dL (0-100) VLDL Cholesterol, Calculated 23 mg/dL (0-40) Non-HDL Cholesterol Calculated 115 mg/dL (0-129) HDL Cholesterol 33 mg/dL (40-60) Cholesterol/HDL Ratio 4.5 Laboratory Tests Test 01/27/19 15:29 01/27/19 15:30 01/27/19 16:07 01/27/19 17:55 Bedside Troponin I 0.05 ng/ml (<0.08) Prothrombin Time 12.5 SEC (11.7-14.0) Prothromb Time International Ratio 1.0 (0.8-1.1) Sodium Level 140 mmol/L (136-145) Potassium Level 4.5 mmol/L (3.5-5.1) Chloride Level 103 mmol/L (98-107) Carbon Dioxide Level 24 mmol/L (21-32) Anion Gap 13 (6-14) Blood Urea Nitrogen 18 mg/dL (8-26) Creatinine 1.3 mg/dL (0.7-1.3) Estimated GFR (Cockcroft-Gault) 59.7 BUN/Creatinine Ratio 14 (6-20) Glucose Level 137 mg/dL (70-99) Calcium Level 9.0 mg/dL (8.5-10.1) Magnesium Level 1.9 mg/dL (1.8-2.4) Total Bilirubin 0.4 mg/dL (0.2-1.0) Aspartate Amino Transf (AST/SGOT) 18 U/L (15-37) Alanine Aminotransferase (ALT/SGPT) 27 U/L (16-63) Alkaline Phosphatase 89 U/L (46-116) Creatine Kinase 109 U/L (39-308) Creatine Kinase MB (Mass) 1.1 ng/mL (0.0-3.6) Creatine Kinase MB Relative Index 1.0 % (0-4) Troponin I Quantitative 0.058 ng/mL (0.000-0.055) 22.854 ng/mL (0.000-0.055) AU-Ast-V-Type Natriuretic Peptide 374 pg/mL (0-124) Total Protein 7.8 g/dL (6.4-8.2) Albumin 3.6 g/dL (3.4-5.0) Albumin/Globulin Ratio 0.9 (1.0-1.7) Lipase 101 U/L (73-393) Activated Clotting Time 225 sec (92-181) White Blood Count 10.7 x10^3/uL (4.0-11.0) Red Blood Count 4.83 x10^6/uL (4.30-5.70) Hemoglobin 14.8 g/dL (13.0-17.5) Hematocrit 44.7 % (39.0-53.0) Mean Corpuscular Volume 93 fL (79-100) Mean Corpuscular Hemoglobin 31 pg (25-35) Mean Corpuscular Hemoglobin Concent 33 g/dL (31-37) Red Cell Distribution Width 13.9 % (11.5-14.5) Platelet Count 314 x10^3/uL (140-400) Neutrophils (%) (Auto) 72 % (31-73) Lymphocytes (%) (Auto) 20 % (24-48) Monocytes (%) (Auto) 6 % (0-9) Eosinophils (%) (Auto) 2 % (0-3) Basophils (%) (Auto) 1 % (0-3) Neutrophils # (Auto) 7.7 x10^3uL (1.8-7.7) Lymphocytes # (Auto) 2.1 x10^3/uL (1.0-4.8) Monocytes # (Auto) 0.6 x10^3/uL (0.0-1.1) Eosinophils # (Auto) 0.2 x10^3/uL (0.0-0.7) Basophils # (Auto) 0.1 x10^3/uL (0.0-0.2) Test 01/27/19 22:00 01/28/19 05:00 Troponin I Quantitative 54.492 ng/mL (0.000-0.055) Urine Opiates Screen Neg (NEG) Urine Methadone Screen Neg (NEG) Urine Barbiturates Neg (NEG) Urine Phencyclidine Screen Neg (NEG) Urine Amphetamine/Methamphetamine Neg (NEG) Urine Benzodiazepines Screen Pos (NEG) Urine Cocaine Screen Neg (NEG) Urine Cannabinoids Screen Neg (NEG) Urine Ethyl Alcohol Neg (NEG) White Blood Count 11.8 x10^3/uL (4.0-11.0) Red Blood Count 4.98 x10^6/uL (4.30-5.70) Hemoglobin 15.2 g/dL (13.0-17.5) Hematocrit 45.6 % (39.0-53.0) Mean Corpuscular Volume 92 fL (79-100) Mean Corpuscular Hemoglobin 31 pg (25-35) Mean Corpuscular Hemoglobin Concent 33 g/dL (31-37) Red Cell Distribution Width 14.2 % (11.5-14.5) Platelet Count 321 x10^3/uL (140-400) Neutrophils (%) (Auto) 71 % (31-73) Lymphocytes (%) (Auto) 18 % (24-48) Monocytes (%) (Auto) 9 % (0-9) Eosinophils (%) (Auto) 2 % (0-3) Basophils (%) (Auto) 0 % (0-3) Neutrophils # (Auto) 8.4 x10^3uL (1.8-7.7) Lymphocytes # (Auto) 2.1 x10^3/uL (1.0-4.8) Monocytes # (Auto) 1.1 x10^3/uL (0.0-1.1) Eosinophils # (Auto) 0.2 x10^3/uL (0.0-0.7) Basophils # (Auto) 0.0 x10^3/uL (0.0-0.2) Sodium Level 138 mmol/L (136-145) Potassium Level 3.8 mmol/L (3.5-5.1) Chloride Level 105 mmol/L (98-107) Carbon Dioxide Level 20 mmol/L (21-32) Anion Gap 13 (6-14) Blood Urea Nitrogen 14 mg/dL (8-26) Creatinine 1.0 mg/dL (0.7-1.3) Estimated GFR (Cockcroft-Gault) 80.8 Glucose Level 164 mg/dL (70-99) Calcium Level 8.0 mg/dL (8.5-10.1) Triglycerides Level 113 mg/dL (0-150) Cholesterol Level 148 mg/dL (0-200) LDL Cholesterol, Calculated 92 mg/dL (0-100) VLDL Cholesterol, Calculated 23 mg/dL (0-40) Non-HDL Cholesterol Calculated 115 mg/dL (0-129) HDL Cholesterol 33 mg/dL (40-60) Cholesterol/HDL Ratio 4.5 Medications Current Medications Iodixanol (Visipaque 320) 100 ml STK-MED ONCE .ROUTE ; Start 01/27/19 at 15:28; Stop 01/27/19 at 15:29; Status DC Lidocaine HCl (Lidocaine 1% 20ml Vial) 20 ml STK-MED ONCE .ROUTE ; Start at 15:28; Stop 01/27/19 at 15:29; Status DC Heparin Sodium/ Sodium Chloride 1,000 ml @ As Directed STK-MED ONCE .ROUTE ; Start 01/27/19 at 15:28; Stop 01/27/19 at 15:29; Status DC Heparin Sodium/ Sodium Chloride 500 ml @ As Directed STK-MED ONCE .ROUTE ; Start 01/27/19 at 15:30; Stop 01/27/19 at 15:31; Status DC Aspirin (Children'S Aspirin) 324 mg 1X ONCE PO Last administered on 01/27/19at 15:43; Start 01/27/19 at 16:00; Stop 01/27/19 at 16:01; Status DC Heparin Sodium (Porcine) (Heparin Sodium) 4,000 unit 1X ONCE IV Last administered on 01/27/19at 15:42; Start 01/27/19 at 16:00; Stop 01/27/19 at 16:01; Status DC Aspirin (Children'S Aspirin) 324 mg 1X ONCE PO ; Start 01/27/19 at 16:00; Stop 01/27/19 at 16:01; Status UNV Lorazepam (Ativan Inj) 0.5 mg 1X ONCE IV Last administered on 01/27/19at 15:42; Start 01/27/19 at 16:00; Stop 01/27/19 at 16:01; Status DC Fentanyl Citrate (Fentanyl 2ml Vial) 100 mcg STK-MED ONCE .ROUTE ; Start 01/27/19 at 15:51; Stop 01/27/19 at 15:52; Status DC Midazolam HCl (Versed) 2 mg STK-MED ONCE .ROUTE ; Start 01/27/19 at 15:51; Stop 01/27/19 at 15:52; Status DC Heparin Sodium (Porcine) (Heparin Sodium) 10,000 unit STK-MED ONCE .ROUTE ; Start 01/27/19 at 15:51; Stop 01/27/19 at 15:52; Status DC Verapamil HCl (Verapamil) 5 mg STK-MED ONCE .ROUTE ; Start 01/27/19 at 15:51; Stop 01/27/19 at 15:52; Status DC Nitroglycerin (Nitroglycerin) 200 mcg STK-MED ONCE .ROUTE ; Start 01/27/19 at 15:51; Stop 01/27/19 at 15:52; Status DC Tirofiban/Sodium Chloride 100 ml @ As Directed STK-MED ONCE IV ; Start 01/27/19 at 16:08; Stop 01/27/19 at 16:09; Status DC Nitroglycerin (Nitroglycerin) 400 mcg 1X ONCE IART Last administered on 01/27/19at 16:44; Start 01/27/19 at 16:30; Stop 01/27/19 at 16:35; Status DC Verapamil HCl (Verapamil) 5 mg 1X ONCE IART Last administered on 01/27/19at 16:46; Start 01/27/19 at 16:30; Stop 01/27/19 at 16:35; Status DC Heparin Sodium (Porcine) (Heparin Sodium) 2,500 unit 1X ONCE IART Last administered on 01/27/19at 16:48; Start 01/27/19 at 16:30; Stop 01/27/19 at 16:35; Status DC Heparin Sodium/ Sodium Chloride (HEPARIN for ARTERIAL LINE FLUSH) 1,000 unit 1X ONCE IART Last administered on 01/27/19at 16:44; Start 01/27/19 at 16:30; Stop 01/27/19 at 16:35; Status DC Heparin Sodium/ Sodium Chloride (HEPARIN for ARTERIAL LINE FLUSH) 1,000 unit 1X ONCE IART Last administered on 01/27/19 16:44; Start 01/27/19 at 16:30; Stop 01/27/19 at 16:35; Status DC Midazolam HCl (Versed) 2 mg 1X ONCE IV Last administered on 01/27/19 16:46; Start 01/27/19 at 16:30; Stop 01/27/19 at 16:35; Status DC Fentanyl Citrate (Fentanyl 2ml Vial) 100 mcg 1X ONCE IV Last administered on 01/27/19 16:45; Start 01/27/19 at 16:30; Stop 01/27/19 at 16:35; Status DC Iodixanol (Visipaque 320) 100 ml 1X ONCE IART Last administered on 01/27/19 16:46; Start 01/27/19 at 16:30; Stop 01/27/19 at 16:35; Status DC Prasugrel (Effient) 60 mg 1X ONCE PO Last administered on 01/27/19 16:45; Start 01/27/19 at 16:30; Stop 01/27/19 at 16:35; Status DC Lidocaine HCl (Lidocaine 1% 20ml Vial) 11 ml 1X ONCE INJ Last administered on 01/27/19 16:45; Start 01/27/19 at 16:30; Stop 01/27/19 at 16:38; Status DC Tirofiban/Sodium Chloride 100 ml @ 0 mls/hr CONT PRN IV PER PROTOCOL Last administered on 01/27/19 16:16; Start 01/27/19 at 16:30; Stop 01/28/19 at 10:29 Nicotine (Nicoderm Cq 21mg) 1 patch DAILY TD Last administered on 01/28/19 09:13; Start 01/27/19 at 18:00 Hydralazine HCl (Apresoline Inj) 10 mg PRN Q4HRS PRN IVP ELEVATED BP, SEE COMMENTS Last administered on 01/28/19 00:59; Start 01/27/19 at 19:15 Lorazepam (Ativan Inj) 0.5 mg 1X ONCE IV Last administered on 01/27/19 21:10; Start 01/27/19 at 19:15; Stop 01/27/19 at 19:16; Status DC Ondansetron HCl (Zofran) 4 mg PRN Q6HRS PRN IV NAUSEA/VOMITING; Start 01/27/19 at 19:45 Morphine Sulfate (Morphine Sulfate) 1 mg PRN Q1HR PRN IV PAIN; Start 01/27/19 at 19:45 Magnesium Hydroxide (Milk Of Magnesia) 2,400 mg PRN Q12HR PRN PO CONSTIPATION; Start 01/27/19 at 19:45 Heparin Sodium (Porcine) (Heparin Sodium) 5,000 unit Q12HR SQ ; Start 01/28/19 at 09:00 Lisinopril (Prinivil) 2.5 mg DAILY PO ; Start 01/28/19 at 09:00 Prasugrel (Effient) 10 mg DAILYWBKFT PO Last administered on 01/28/19at 09:15; Start 01/28/19 at 08:00 Metoprolol Tartrate (Lopressor) 12.5 mg BID PO Last administered on 01/28/19at 09:14; Start 01/28/19 at 09:00 Aspirin (Ran Aspirin) 325 mg DAILYWBKFT PO Last administered on 01/28/19at 09:14; Start 01/28/19 at 08:00 Acetaminophen (Tylenol) 650 mg PRN Q4HRS PRN PO HEADACHE Last administered on 01/28/19at 06:57; Start 01/28/19 at 06:45 Vitals/I & O Vital Sign - Last 24 Hours 01/27/19 01/27/19 01/27/19 01/27/19 15:22 16:45 16:46 16:50 Temp 97.5 97.5 Pulse 82 73 74 Resp 20 10 11 B/P (MAP) 174/111 (132) Pulse Ox 99 100 99 O2 Delivery Room Air Nasal Cannula Nasal Cannula O2 Flow Rate 2.0 2.0 01/27/19 01/27/19 01/27/19 01/27/19 17:00 17:00 17:15 17:30 Temp 98.2 98.2 Pulse 86 76 Resp 23 12 B/P (MAP) 158/90 (112) 152/97 (115) 156/96 (116) Pulse Ox 99 99 O2 Delivery Room Air Room Air Room Air 01/27/19 01/27/19 01/27/19 01/27/19 17:45 18:00 18:15 18:30 Pulse 82 76 90 76 Resp 15 13 18 16 B/P (MAP) 139/86 (103) 168/106 (126) 154/89 (110) 166/99 (121) Pulse Ox 98 99 98 98 O2 Delivery Room Air Room Air Room Air Room Air 01/27/19 01/27/19 01/27/19 01/27/19 19:00 19:00 19:28 19:30 Pulse 82 72 74 Resp 16 20 20 B/P (MAP) 163/103 (123) 161/116 173/112 (132) Pulse Ox 99 100 O2 Delivery Room Air Room Air Room Air 01/27/19 01/27/19 01/27/19 01/27/19 19:45 20:00 20:00 21:00 Temp 98.3 98.3 Pulse 78 86 96 Resp 20 16 14 B/P (MAP) 161/86 (111) 155/97 (116) 157/97 (117) Pulse Ox 100 99 99 O2 Delivery Room Air Room Air Room Air Room Air 01/27/19 01/27/19 01/27/19 01/28/19 22:00 23:00 23:59 00:00 Temp 98.7 98.7 Pulse 100 112 106 Resp 20 20 20 B/P (MAP) 156/100 (118) 156/100 (118) 156/101 (119) Pulse Ox 100 98 98 O2 Delivery Room Air Room Air Room Air Room Air 01/28/19 01/28/19 01/28/19 01/28/19 00:59 01:00 02:00 03:00 Pulse 103 106 113 118 Resp 20 24 20 B/P (MAP) 156/101 157/95 (115) 133/77 (95) 128/75 (92) Pulse Ox 98 98 99 O2 Delivery Room Air Room Air Room Air 01/28/19 01/28/19 01/28/19 01/28/19 04:00 04:00 05:00 06:00 Temp 98.7 98.7 Pulse 112 112 112 Resp 20 20 24 B/P (MAP) 150/90 (110) 145/94 (111) 149/88 (108) Pulse Ox 98 98 99 O2 Delivery Room Air Room Air Room Air Room Air 01/28/19 09:14 Pulse 109 B/P (MAP) 120/83 Intake and Output 01/27/19 01/27/19 01/28/19 15:00 23:00 07:00 Intake Total 100 ml 600 ml Output Total 500 ml 400 ml Balance -400 ml 200 ml JAELYN TENORIO MD January 28, 2019 10:01
--- NOTE | 2019-01-28 14:15 | PDOC ---
CARDIOLOGY PROGRESS NOTE SUBJECTIVE: No events overnight. Denies any chest pain this morning. OBJECTIVE: Vital SIgns: Vital Signs Date Time Temp Pulse Resp B/P (MAP) Pulse Ox O2 Delivery O2 Flow Rate FiO2 01/28/19 11:11 90 21 107/75 (86) 98 Room Air 01/28/19 08:00 98.8 98.8 01/27/19 16:50 2.0 I & O Intake and Output 01/28/19 07:00 Intake Total 700 ml Output Total 900 ml Balance -200 ml Intake Oral 600 ml IV Total 100 ml Output Urine Total 900 ml Objective: GEN.: No apparent distress. Alert and oriented. HEENT: Head is normocephalic, atraumatic NECK: Supple. LUNGS: Clear to auscultation. HEART: RRR, S1, S2 present. Peripheral pulses intact ABDOMEN: Soft, nontender. Positive bowel sounds. EXTREMITIES: Without any cyanosis. NEUROLOGIC: Normal speech, normal tone PSYCHIATRIC: Normal affect, normal mood. SKIN: No ulcerations Groin site c/d/i. right radial site c/d/i CURRENT MEDICATIONS: Current Medications Medications (Trade) Dose Ordered Sig/Lonnie Start Time Stop Time Status Last Admin Dose Admin Acetaminophen (Tylenol) 650 mg PRN Q4HRS PRN 01/28/19 06:45 01/28/19 06:57 650 MG Aspirin (Ran Aspirin) 325 mg DAILYWBKFT 01/28/19 08:00 01/28/19 09:14 325 MG Aspirin (Children'S Aspirin) 324 mg 1X ONCE 01/27/19 16:00 01/27/19 16:01 UNV Fentanyl Citrate (Fentanyl 2ml Vial) 100 mcg 1X ONCE 01/27/19 16:30 01/27/19 16:35 DC 01/27/19 16:45 100 MCG Heparin Sodium (Porcine) (Heparin Sodium) 5,000 unit Q12HR 01/28/19 09:00 Heparin Sodium/ Sodium Chloride (HEPARIN for ARTERIAL LINE FLUSH) 1,000 unit 1X ONCE 01/27/19 16:30 01/27/19 16:35 DC 01/27/19 16:44 1,000 UNIT Hydralazine HCl (Apresoline Inj) 10 mg PRN Q4HRS PRN 01/27/19 19:15 01/28/19 00:59 10 MG Iodixanol (Visipaque 320) 100 ml 1X ONCE 01/27/19 16:30 01/27/19 16:35 DC 01/27/19 16:46 121 ML Lidocaine HCl (Lidocaine 1% 20ml Vial) 11 ml 1X ONCE 01/27/19 16:30 01/27/19 16:38 DC 01/27/19 16:45 11 ML Lisinopril (Prinivil) 2.5 mg DAILY 01/28/19 09:00 Lorazepam (Ativan Inj) 0.5 mg 1X ONCE 01/27/19 19:15 01/27/19 19:16 DC 01/27/19 21:10 0.5 MG Magnesium Hydroxide (Milk Of Magnesia) 2,400 mg PRN Q12HR PRN 01/27/19 19:45 Metoprolol Tartrate (Lopressor) 12.5 mg BID 01/28/19 09:00 01/28/19 09:14 12.5 MG Midazolam HCl (Versed) 2 mg 1X ONCE 01/27/19 16:30 01/27/19 16:35 DC 01/27/19 16:46 2 MG Morphine Sulfate (Morphine Sulfate) 1 mg PRN Q1HR PRN 01/27/19 19:45 Nicotine (Nicoderm Cq 21mg) 1 patch DAILY 01/27/19 18:00 01/28/19 09:13 1 PATCH Nitroglycerin (Nitroglycerin) 400 mcg 1X ONCE 01/27/19 16:30 01/27/19 16:35 DC 01/27/19 16:44 400 MCG Ondansetron HCl (Zofran) 4 mg PRN Q6HRS PRN 01/27/19 19:45 Prasugrel (Effient) 10 mg DAILYWBKFT 01/28/19 08:00 01/28/19 09:15 10 MG Tirofiban/Sodium Chloride 100 ml @ 0 mls/hr CONT PRN 01/27/19 16:30 01/28/19 10:29 DC 01/27/19 16:16 16.2 MLS/HR Verapamil HCl (Verapamil) 5 mg 1X ONCE 01/27/19 16:30 01/27/19 16:35 DC 01/27/19 16:46 5 MG DIAGNOSTIC TESTING: hgb/plts/cr stable. trop peak at 54 thus far ASSESSMENT: 1. Anterior STEMI 2. Tobacco abuse 3. Drug abuse PLAN: 1. Continue asa 81mg daily, Prasugrel 10mg daily, Low dose metoprolol and lisinopril. Start lovastatin 20mg daily on DC. 2. I discussed with him the need for close f/u. He states that he will see a woodworker in [place]. Thanks. Ok to DC tomorrow. Pls call with questions ZACH HUFF MD January 28, 2019 14:15
--- NOTE | 2019-01-28 15:00 | PDOC ---
CARDIO Progress Notes Date and Time Date of Service 01/28/2019 Time of Evaluation 1430 Subjective Subjective: No Chest Pain, No shortness of breath, No Palpitations Vitals Vitals Vital Signs Date Time Temp Pulse Resp B/P (MAP) Pulse Ox O2 Delivery O2 Flow Rate FiO2 01/28/19 11:11 90 21 107/75 (86) 98 Room Air 01/28/19 08:00 98.8 98.8 01/27/19 16:50 2.0 Weight Weight [ ] Input and Output Intake and Output Intake and Output 01/28/19 07:00 Intake Total 700 ml Output Total 900 ml Balance -200 ml Intake Oral 600 ml IV Total 100 ml Output Urine Total 900 ml Laboratory Labs Laboratory Tests Test 01/27/19 15:29 01/27/19 15:30 01/27/19 16:07 01/27/19 17:55 Bedside Troponin I 0.05 ng/ml (<0.08) Prothrombin Time 12.5 SEC (11.7-14.0) Prothromb Time International Ratio 1.0 (0.8-1.1) Sodium Level 140 mmol/L (136-145) Potassium Level 4.5 mmol/L (3.5-5.1) Chloride Level 103 mmol/L (98-107) Carbon Dioxide Level 24 mmol/L (21-32) Anion Gap 13 (6-14) Blood Urea Nitrogen 18 mg/dL (8-26) Creatinine 1.3 mg/dL (0.7-1.3) Estimated GFR (Cockcroft-Gault) 59.7 BUN/Creatinine Ratio 14 (6-20) Glucose Level 137 mg/dL (70-99) Calcium Level 9.0 mg/dL (8.5-10.1) Magnesium Level 1.9 mg/dL (1.8-2.4) Total Bilirubin 0.4 mg/dL (0.2-1.0) Aspartate Amino Transf (AST/SGOT) 18 U/L (15-37) Alanine Aminotransferase (ALT/SGPT) 27 U/L (16-63) Alkaline Phosphatase 89 U/L (46-116) Creatine Kinase 109 U/L (39-308) Creatine Kinase MB (Mass) 1.1 ng/mL (0.0-3.6) Creatine Kinase MB Relative Index 1.0 % (0-4) Troponin I Quantitative 0.058 ng/mL (0.000-0.055) 22.854 ng/mL (0.000-0.055) JT-Uzp-V-Type Natriuretic Peptide 374 pg/mL (0-124) Total Protein 7.8 g/dL (6.4-8.2) Albumin 3.6 g/dL (3.4-5.0) Albumin/Globulin Ratio 0.9 (1.0-1.7) Lipase 101 U/L (73-393) Activated Clotting Time 225 sec (92-181) White Blood Count 10.7 x10^3/uL (4.0-11.0) Red Blood Count 4.83 x10^6/uL (4.30-5.70) Hemoglobin 14.8 g/dL (13.0-17.5) Hematocrit 44.7 % (39.0-53.0) Mean Corpuscular Volume 93 fL (79-100) Mean Corpuscular Hemoglobin 31 pg (25-35) Mean Corpuscular Hemoglobin Concent 33 g/dL (31-37) Red Cell Distribution Width 13.9 % (11.5-14.5) Platelet Count 314 x10^3/uL (140-400) Neutrophils (%) (Auto) 72 % (31-73) Lymphocytes (%) (Auto) 20 % (24-48) Monocytes (%) (Auto) 6 % (0-9) Eosinophils (%) (Auto) 2 % (0-3) Basophils (%) (Auto) 1 % (0-3) Neutrophils # (Auto) 7.7 x10^3uL (1.8-7.7) Lymphocytes # (Auto) 2.1 x10^3/uL (1.0-4.8) Monocytes # (Auto) 0.6 x10^3/uL (0.0-1.1) Eosinophils # (Auto) 0.2 x10^3/uL (0.0-0.7) Basophils # (Auto) 0.1 x10^3/uL (0.0-0.2) Test 01/27/19 22:00 01/28/19 05:00 Troponin I Quantitative 54.492 ng/mL (0.000-0.055) Urine Opiates Screen Neg (NEG) Urine Methadone Screen Neg (NEG) Urine Barbiturates Neg (NEG) Urine Phencyclidine Screen Neg (NEG) Urine Amphetamine/Methamphetamine Neg (NEG) Urine Benzodiazepines Screen Pos (NEG) Urine Cocaine Screen Neg (NEG) Urine Cannabinoids Screen Neg (NEG) Urine Ethyl Alcohol Neg (NEG) White Blood Count 11.8 x10^3/uL (4.0-11.0) Red Blood Count 4.98 x10^6/uL (4.30-5.70) Hemoglobin 15.2 g/dL (13.0-17.5) Hematocrit 45.6 % (39.0-53.0) Mean Corpuscular Volume 92 fL (79-100) Mean Corpuscular Hemoglobin 31 pg (25-35) Mean Corpuscular Hemoglobin Concent 33 g/dL (31-37) Red Cell Distribution Width 14.2 % (11.5-14.5) Platelet Count 321 x10^3/uL (140-400) Neutrophils (%) (Auto) 71 % (31-73) Lymphocytes (%) (Auto) 18 % (24-48) Monocytes (%) (Auto) 9 % (0-9) Eosinophils (%) (Auto) 2 % (0-3) Basophils (%) (Auto) 0 % (0-3) Neutrophils # (Auto) 8.4 x10^3uL (1.8-7.7) Lymphocytes # (Auto) 2.1 x10^3/uL (1.0-4.8) Monocytes # (Auto) 1.1 x10^3/uL (0.0-1.1) Eosinophils # (Auto) 0.2 x10^3/uL (0.0-0.7) Basophils # (Auto) 0.0 x10^3/uL (0.0-0.2) Sodium Level 138 mmol/L (136-145) Potassium Level 3.8 mmol/L (3.5-5.1) Chloride Level 105 mmol/L (98-107) Carbon Dioxide Level 20 mmol/L (21-32) Anion Gap 13 (6-14) Blood Urea Nitrogen 14 mg/dL (8-26) Creatinine 1.0 mg/dL (0.7-1.3) Estimated GFR (Cockcroft-Gault) 80.8 Glucose Level 164 mg/dL (70-99) Calcium Level 8.0 mg/dL (8.5-10.1) Triglycerides Level 113 mg/dL (0-150) Cholesterol Level 148 mg/dL (0-200) LDL Cholesterol, Calculated 92 mg/dL (0-100) VLDL Cholesterol, Calculated 23 mg/dL (0-40) Non-HDL Cholesterol Calculated 115 mg/dL (0-129) HDL Cholesterol 33 mg/dL (40-60) Cholesterol/HDL Ratio 4.5 Physical Exam HEENT: Neck Supple W Full Motion Chest: Symmetric LUNGS: Clear to Auscultation Heart: S1S2, RRR (SR no ectopies) Abdomen: Soft N/T Extremities: No Edema, No Calf Tenderness Neurology: alert, oriented, follow commands Other Exams right groin arteriotomy site intact no erythema. Mild tenderness otherwise no swelling, neurovascular status to bilateral LE intact. Tolerating ambulation. Assessment Assessment 1. Anterior STEMI: S/P PCI/SHABANA to LAD 2. Acute on chronic diastolic/systolic CHF: compensated 3. Mild ICM: EF at 45% per [facility]. TTE pending. 4. Suspect DM2: A1C pending 5. Tobaccoism RECOMMENDATIONS: 1. ECASA 81 mg, prasugrel. Statin. 2. Low dose metoprolol and lisinopril. 3. Cardiac rehab encouraged. Pt is moving to [place], he will follow up with his fathers cardiolgoist over there. 4. Smoking cessation. May transfer to [facility] KAROLINA KRAUSE APRN January 28, 2019 15:00
--- NOTE | 2019-01-28 15:07 | NUR ---
Ambulated x3 around unit. Base resting HR 80s,QCI150,RR 18 w HR to 94,RR unchanged w activity, SBP 127 during ambulation. Recovery HR 80's, SBP 114,RR 22. 3min rest period. Printed material provided on current meds,[place] information post procedure radial wrist care.appears uninterested in material at this time. Will reinforce later as needed.
--- NOTE | 2019-01-28 15:15 | NUR ---
BETH in w order changes noted . Informed of transfer to stepdown and potential discharge in am. Wanting to "leave " unit for cafeteria. Risk factors of unmonitored patient explained and hospital policy reinforced. Visiting w family. Continue POC
--- NOTE | 2019-01-28 17:27 | CARD ---
MR#: [id number] Date of Study: 01/28/2019 Ordering Physician: KAROLINA KRAUSE, Referring Physician: ABDULLAHI ADLER, Tech: Rosario Frye SVETLANA APPROVED REPORT EXAM: Two-dimensional and M-mode echocardiogram with Doppler and color Doppler. Other Information Quality : GoodHR: 79bpm Rhythm : NSR INDICATION STEMI 2D DIMENSIONS RVDd2.9 (2.9-3.5cm)Left Atrium(2D)2.6 (1.6-4.0cm) IVSd1.1 (0.7-1.1cm)Aortic Root(2D)3.2 (2.0-3.7cm) LVDd4.6 (3.9-5.9cm)LVOT Diameter2.0 (1.8-2.4cm) PWd1.0 (0.7-1.1cm)LVDs3.4 (2.5-4.0cm) FS (%) 25.6 %SV49.1 ml LVEF(%)50.4 (>50%) M-Mode DIMENSIONS Left Atrium(MM)2.82 (2.5-4.0cm)Aortic Root3.28 (2.2-3.7cm) Aortic Valve AoV Peak Akash.189.5cm/sAoV VTI30.0cm AO Peak GR.14.4mmHgLVOT Peak Akash.166.0cm/s AO Mean GR.9mmHgAVA (VMAX)2.63cm2 MARSHALL (VTI)2.59pb0NQ P 1/2 [id number] Mitral Valve MV E Zobiynmb34.7cm/sMV DECEL [id number] MV A Djumogtb64.0cm/sE/A Ratio1.0 MV A Crvmmheq436ol Pulmonary Valve PV Peak Mgmnwwvc889.0cm/s Tricuspid Valve TR P. Slncxoth314wa/sRAP DOTQIQPA0jyAx TR Peak Gr.67wdGnLZNH34jwGm LEFT VENTRICLE The left ventricle is normal size. Proximal septal thickening is noted. The Ejection Fraction is 45-5 0%. Hypokinesis of mid to distal anterior wall. Transmitral Doppler flow pattern is Grade I-abnormal relaxation pattern. RIGHT VENTRICLE The right ventricle is normal size. There is normal right ventricular wall thickness. The right ventr icular systolic function is normal. ATRIA The left atrium size is normal. The right atrium size is normal. The interatrial septum is intact wit h no evidence for an atrial septal defect or patent foramen ovale as noted on 2-D or Doppler imaging. AORTIC VALVE The aortic valve is mildly calcified. The aortic valve is trileaflet. Doppler and Color Flow revealed mild aortic regurgitation. There is no significant aortic valvular stenosis. There is no aortic valv ular vegetation. MITRAL VALVE The mitral valve is normal in structure and function. There is no evidence of mitral valve prolapse. There is no mitral valve stenosis. Doppler and Color-flow revealed trace mitral regurgitation. TRICUSPID VALVE The tricuspid valve is normal in structure and function. Doppler and Color Flow revealed trace tricus pid regurgitation. The PA pressure was estimated at 24 mmHg. There is no tricuspid valve prolapse or vegetation. There is no tricuspid valve stenosis. PULMONIC VALVE The pulmonic valve is not well visualized. GREAT VESSELS The aortic root is normal in size. The ascending aorta is Mildly dilated at 4.0cm. The IVC is normal in size and collapses >50% with inspiration. PERICARDIAL EFFUSION There is no evidence of significant pericardial effusion. Critical Notification Critical Value: No <Conclusion> Hypokinesis of mid to distal anterior wall. The Ejection Fraction is 45-50%. Transmitral Doppler flow pattern is Grade I-abnormal relaxation pattern. Mild aortic regurgitation. Trace mitral regurgitation. Trace tricuspid regurgitation. The PA pressure was estimated at 24 mmHg. There is no evidence of significant pericardial effusion. Signed by : Lorenzo Mchugh, Electronically Approved : 01/28/2019 17:26:41
[2019-01-28] MEDS ORDERED: ATORVASTATIN CALCIUM 40 MG TABLET. PO SCH (21:00)
[2019-01-29 03:18] VITALS: BP 121/81
[2019-01-29 04:45] LABS: BASO # 0.1 x10^3/uL (0.0-0.2); BASO % 1 % (0-3); EOS # 0.3 x10^3/uL (0.0-0.7); EOS % 3 % (0-3); HEMATOCRIT 46.1 % (39.0-53.0); HEMOGLOBIN 15.2 g/dL (13.0-17.5); LYMPH # 2.7 x10^3/uL (1.0-4.8); LYMPH % 25 % (24-48); MEAN CORPUSCULAR HEMOGLOBIN 31 pg (25-35); MEAN CORPUSCULAR HGB CONC 33 g/dL (31-37); MEAN CORPUSCULAR VOLUME 93 fL (79-100); MONO # 1.1 x10^3/uL (0.0-1.1); MONO % 11 % (0-9); NEUT # 6.5 x10^3uL (1.8-7.7); NEUT % 60 % (31-73); PLATELET COUNT 298 x10^3/uL (140-400); RED BLOOD COUNT 4.97 x10^6/uL (4.30-5.70); WHITE BLOOD COUNT 10.8 x10^3/uL (4.0-11.0)
[2019-01-29 05:07] LABS: ALBUMIN 3.2 g/dL (3.4-5.0); ALBUMIN/GLOBULIN RATIO 0.8 (1.0-1.7); CALCIUM 8.7 mg/dL (8.5-10.1); CREATININE 1.1 mg/dL (0.7-1.3); GFR 72.4; POTASSIUM 4.6 mmol/L (3.5-5.1); TOTAL BILIRUBIN 0.4 mg/dL (0.2-1.0); TOTAL PROTEIN 7.2 g/dL (6.4-8.2)
--- NOTE | 2019-01-29 05:52 | NUR ---
Slept well, w/o chest pain. VSS. Ambulated in hallway earlier w/o incident.
[2019-01-29 07:00] VITALS: BP 122/63
[2019-01-29] MEDS ORDERED: ASPIRIN ENTERIC COATED 81 MG TABLET.DR. PO SCH (08:00)
[2019-01-29] MEDS: PRASUGREL 10 MG TABLET. PO SCH (08:28)
[2019-01-29] MEDS: METOPROLOL TART IMMED RELEASE 25 MG TABLET. PO SCH (08:29)
[2019-01-29] MEDS: NICOTINE 21MG PATCH. TD SCH (08:29)
[2019-01-29 08:30] VITALS: BP 116/67
[2019-01-29] MEDS: LISINOPRIL 5 MG TABLET. PO SCH (08:30)
--- NOTE | 2019-01-29 09:52 | PDOC ---
PROGRESS NOTES History of Present Illness History of Present Illness VTE Prophylaxis Ordered VTE Prophylaxis Devices: Yes VTE Pharmacological Prophylaxi: Yes Assessment/Plan Assessment/Plan A/P: STEMI - given ASA, to labor relations specialist. Cardiology following. Will check UDS. S/p SHABANA to proximal LAD Smoker - counseled on cessation Elevated blood pressure without diagnosis of HTN - 174/111 in ED, likely from STEMI stress. Will monitor. Will need BB regardless, start metoprolol post-cath Decreased EF - will start MOHSEN if cardiology agrees Anterior STEMI treated with a 3.5/18 mm SHABANA. Acute on chronic decompensated systolic and diastolic HF Mild LV dysfunction. EF 45% hx meth abuse Recommendations FEN - Cardiac diet PPX - Heparin FULL CODE ICU admit for STEMI Ischemic cardiomyopathy with EF 45-50%. Continue metoprolol and lisinopril Hyperlipidemia: Continue statin therapy Okay for discharge from cardiac standpoint. 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-up with telegraph operator in [place] where he is moving no illicit drug use 36 min d/c planning time Vitals Vitals Vital Signs Date Time Temp Pulse Resp B/P (MAP) Pulse Ox O2 Delivery O2 Flow Rate FiO2 01/29/19 08:30 92 116/67 01/29/19 08:00 Room Air 01/29/19 07:00 98.8 15 97 98.8 Physical Exam General: Alert, Oriented X3, Cooperative, No acute distress Heart: Regular rate, Normal S1, Normal S2 Lungs: Clear Abdomen: Normal bowel sounds, Soft, No tenderness, No hepatosplenomegaly, No masses Extremities: No clubbing, No cyanosis, No edema, Normal pulses, No tenderness/swelling Skin: No rashes, No breakdown, No significant lesion Labs LABS Laboratory Tests Test 01/29/19 04:30 White Blood Count 10.8 x10^3/uL (4.0-11.0) Red Blood Count 4.97 x10^6/uL (4.30-5.70) Hemoglobin 15.2 g/dL (13.0-17.5) Hematocrit 46.1 % (39.0-53.0) Mean Corpuscular Volume 93 fL (79-100) Mean Corpuscular Hemoglobin 31 pg (25-35) Mean Corpuscular Hemoglobin Concent 33 g/dL (31-37) Red Cell Distribution Width 14.0 % (11.5-14.5) Platelet Count 298 x10^3/uL (140-400) Neutrophils (%) (Auto) 60 % (31-73) Lymphocytes (%) (Auto) 25 % (24-48) Monocytes (%) (Auto) 11 % (0-9) Eosinophils (%) (Auto) 3 % (0-3) Basophils (%) (Auto) 1 % (0-3) Neutrophils # (Auto) 6.5 x10^3uL (1.8-7.7) Lymphocytes # (Auto) 2.7 x10^3/uL (1.0-4.8) Monocytes # (Auto) 1.1 x10^3/uL (0.0-1.1) Eosinophils # (Auto) 0.3 x10^3/uL (0.0-0.7) Basophils # (Auto) 0.1 x10^3/uL (0.0-0.2) Sodium Level 137 mmol/L (136-145) Potassium Level 4.6 mmol/L (3.5-5.1) Chloride Level 104 mmol/L (98-107) Carbon Dioxide Level 22 mmol/L (21-32) Anion Gap 11 (6-14) Blood Urea Nitrogen 16 mg/dL (8-26) Creatinine 1.1 mg/dL (0.7-1.3) Estimated GFR (Cockcroft-Gault) 72.4 BUN/Creatinine Ratio 15 (6-20) Glucose Level 121 mg/dL (70-99) Calcium Level 8.7 mg/dL (8.5-10.1) Total Bilirubin 0.4 mg/dL (0.2-1.0) Aspartate Amino Transf (AST/SGOT) 63 U/L (15-37) Alanine Aminotransferase (ALT/SGPT) 40 U/L (16-63) Alkaline Phosphatase 74 U/L (46-116) Total Protein 7.2 g/dL (6.4-8.2) Albumin 3.2 g/dL (3.4-5.0) Albumin/Globulin Ratio 0.8 (1.0-1.7) Assessment and Plan Assessmemt and Plan Problems Medical Problems: (1) STEMI (ST elevation myocardial infarction) Status: Acute Comment Review of Relevant I have reviewed the following items greyson (where applicable) has been applied. Labs Laboratory Tests Test 01/27/19 15:29 01/27/19 15:30 01/27/19 16:07 01/27/19 17:55 Bedside Troponin I 0.05 ng/ml (<0.08) Prothrombin Time 12.5 SEC (11.7-14.0) Prothromb Time International Ratio 1.0 (0.8-1.1) Sodium Level 140 mmol/L (136-145) Potassium Level 4.5 mmol/L (3.5-5.1) Chloride Level 103 mmol/L (98-107) Carbon Dioxide Level 24 mmol/L (21-32) Anion Gap 13 (6-14) Blood Urea Nitrogen 18 mg/dL (8-26) Creatinine 1.3 mg/dL (0.7-1.3) Estimated GFR (Cockcroft-Gault) 59.7 BUN/Creatinine Ratio 14 (6-20) Glucose Level 137 mg/dL (70-99) Calcium Level 9.0 mg/dL (8.5-10.1) Magnesium Level 1.9 mg/dL (1.8-2.4) Total Bilirubin 0.4 mg/dL (0.2-1.0) Aspartate Amino Transf (AST/SGOT) 18 U/L (15-37) Alanine Aminotransferase (ALT/SGPT) 27 U/L (16-63) Alkaline Phosphatase 89 U/L (46-116) Creatine Kinase 109 U/L (39-308) Creatine Kinase MB (Mass) 1.1 ng/mL (0.0-3.6) Creatine Kinase MB Relative Index 1.0 % (0-4) Troponin I Quantitative 0.058 ng/mL (0.000-0.055) 22.854 ng/mL (0.000-0.055) XF-Oig-H-Type Natriuretic Peptide 374 pg/mL (0-124) Total Protein 7.8 g/dL (6.4-8.2) Albumin 3.6 g/dL (3.4-5.0) Albumin/Globulin Ratio 0.9 (1.0-1.7) Lipase 101 U/L (73-393) Activated Clotting Time 225 sec (92-181) White Blood Count 10.7 x10^3/uL (4.0-11.0) Red Blood Count 4.83 x10^6/uL (4.30-5.70) Hemoglobin 14.8 g/dL (13.0-17.5) Hematocrit 44.7 % (39.0-53.0) Mean Corpuscular Volume 93 fL (79-100) Mean Corpuscular Hemoglobin 31 pg (25-35) Mean Corpuscular Hemoglobin Concent 33 g/dL (31-37) Red Cell Distribution Width 13.9 % (11.5-14.5) Platelet Count 314 x10^3/uL (140-400) Neutrophils (%) (Auto) 72 % (31-73) Lymphocytes (%) (Auto) 20 % (24-48) Monocytes (%) (Auto) 6 % (0-9) Eosinophils (%) (Auto) 2 % (0-3) Basophils (%) (Auto) 1 % (0-3) Neutrophils # (Auto) 7.7 x10^3uL (1.8-7.7) Lymphocytes # (Auto) 2.1 x10^3/uL (1.0-4.8) Monocytes # (Auto) 0.6 x10^3/uL (0.0-1.1) Eosinophils # (Auto) 0.2 x10^3/uL (0.0-0.7) Basophils # (Auto) 0.1 x10^3/uL (0.0-0.2) Test 01/27/19 22:00 01/28/19 05:00 01/29/19 04:30 Troponin I Quantitative 54.492 ng/mL (0.000-0.055) Urine Opiates Screen Neg (NEG) Urine Methadone Screen Neg (NEG) Urine Barbiturates Neg (NEG) Urine Phencyclidine Screen Neg (NEG) Urine Amphetamine/Methamphetamine Neg (NEG) Urine Benzodiazepines Screen Pos (NEG) Urine Cocaine Screen Neg (NEG) Urine Cannabinoids Screen Neg (NEG) Urine Ethyl Alcohol Neg (NEG) White Blood Count 11.8 x10^3/uL (4.0-11.0) 10.8 x10^3/uL (4.0-11.0) Red Blood Count 4.98 x10^6/uL (4.30-5.70) 4.97 x10^6/uL (4.30-5.70) Hemoglobin 15.2 g/dL (13.0-17.5) 15.2 g/dL (13.0-17.5) Hematocrit 45.6 % (39.0-53.0) 46.1 % (39.0-53.0) Mean Corpuscular Volume 92 fL (79-100) 93 fL (79-100) Mean Corpuscular Hemoglobin 31 pg (25-35) 31 pg (25-35) Mean Corpuscular Hemoglobin Concent 33 g/dL (31-37) 33 g/dL (31-37) Red Cell Distribution Width 14.2 % (11.5-14.5) 14.0 % (11.5-14.5) Platelet Count 321 x10^3/uL (140-400) 298 x10^3/uL (140-400) Neutrophils (%) (Auto) 71 % (31-73) 60 % (31-73) Lymphocytes (%) (Auto) 18 % (24-48) 25 % (24-48) Monocytes (%) (Auto) 9 % (0-9) 11 % (0-9) Eosinophils (%) (Auto) 2 % (0-3) 3 % (0-3) Basophils (%) (Auto) 0 % (0-3) 1 % (0-3) Neutrophils # (Auto) 8.4 x10^3uL (1.8-7.7) 6.5 x10^3uL (1.8-7.7) Lymphocytes # (Auto) 2.1 x10^3/uL (1.0-4.8) 2.7 x10^3/uL (1.0-4.8) Monocytes # (Auto) 1.1 x10^3/uL (0.0-1.1) 1.1 x10^3/uL (0.0-1.1) Eosinophils # (Auto) 0.2 x10^3/uL (0.0-0.7) 0.3 x10^3/uL (0.0-0.7) Basophils # (Auto) 0.0 x10^3/uL (0.0-0.2) 0.1 x10^3/uL (0.0-0.2) Sodium Level 138 mmol/L (136-145) 137 mmol/L (136-145) Potassium Level 3.8 mmol/L (3.5-5.1) 4.6 mmol/L (3.5-5.1) Chloride Level 105 mmol/L (98-107) 104 mmol/L (98-107) Carbon Dioxide Level 20 mmol/L (21-32) 22 mmol/L (21-32) Anion Gap 13 (6-14) 11 (6-14) Blood Urea Nitrogen 14 mg/dL (8-26) 16 mg/dL (8-26) Creatinine 1.0 mg/dL (0.7-1.3) 1.1 mg/dL (0.7-1.3) Estimated GFR (Cockcroft-Gault) 80.8 72.4 Glucose Level 164 mg/dL (70-99) 121 mg/dL (70-99) Calcium Level 8.0 mg/dL (8.5-10.1) 8.7 mg/dL (8.5-10.1) Triglycerides Level 113 mg/dL (0-150) Cholesterol Level 148 mg/dL (0-200) LDL Cholesterol, Calculated 92 mg/dL (0-100) VLDL Cholesterol, Calculated 23 mg/dL (0-40) Non-HDL Cholesterol Calculated 115 mg/dL (0-129) HDL Cholesterol 33 mg/dL (40-60) Cholesterol/HDL Ratio 4.5 BUN/Creatinine Ratio 15 (6-20) Total Bilirubin 0.4 mg/dL (0.2-1.0) Aspartate Amino Transf (AST/SGOT) 63 U/L (15-37) Alanine Aminotransferase (ALT/SGPT) 40 U/L (16-63) Alkaline Phosphatase 74 U/L (46-116) Total Protein 7.2 g/dL (6.4-8.2) Albumin 3.2 g/dL (3.4-5.0) Albumin/Globulin Ratio 0.8 (1.0-1.7) Laboratory Tests Test 01/29/19 04:30 White Blood Count 10.8 x10^3/uL (4.0-11.0) Red Blood Count 4.97 x10^6/uL (4.30-5.70) Hemoglobin 15.2 g/dL (13.0-17.5) Hematocrit 46.1 % (39.0-53.0) Mean Corpuscular Volume 93 fL (79-100) Mean Corpuscular Hemoglobin 31 pg (25-35) Mean Corpuscular Hemoglobin Concent 33 g/dL (31-37) Red Cell Distribution Width 14.0 % (11.5-14.5) Platelet Count 298 x10^3/uL (140-400) Neutrophils (%) (Auto) 60 % (31-73) Lymphocytes (%) (Auto) 25 % (24-48) Monocytes (%) (Auto) 11 % (0-9) Eosinophils (%) (Auto) 3 % (0-3) Basophils (%) (Auto) 1 % (0-3) Neutrophils # (Auto) 6.5 x10^3uL (1.8-7.7) Lymphocytes # (Auto) 2.7 x10^3/uL (1.0-4.8) Monocytes # (Auto) 1.1 x10^3/uL (0.0-1.1) Eosinophils # (Auto) 0.3 x10^3/uL (0.0-0.7) Basophils # (Auto) 0.1 x10^3/uL (0.0-0.2) Sodium Level 137 mmol/L (136-145) Potassium Level 4.6 mmol/L (3.5-5.1) Chloride Level 104 mmol/L (98-107) Carbon Dioxide Level 22 mmol/L (21-32) Anion Gap 11 (6-14) Blood Urea Nitrogen 16 mg/dL (8-26) Creatinine 1.1 mg/dL (0.7-1.3) Estimated GFR (Cockcroft-Gault) 72.4 BUN/Creatinine Ratio 15 (6-20) Glucose Level 121 mg/dL (70-99) Calcium Level 8.7 mg/dL (8.5-10.1) Total Bilirubin 0.4 mg/dL (0.2-1.0) Aspartate Amino Transf (AST/SGOT) 63 U/L (15-37) Alanine Aminotransferase (ALT/SGPT) 40 U/L (16-63) Alkaline Phosphatase 74 U/L (46-116) Total Protein 7.2 g/dL (6.4-8.2) Albumin 3.2 g/dL (3.4-5.0) Albumin/Globulin Ratio 0.8 (1.0-1.7) Medications Current Medications Iodixanol (Visipaque 320) 100 ml STK-MED ONCE .ROUTE ; Start 01/27/19 at 15:28; Stop 01/27/19 at 15:29; Status DC Lidocaine HCl (Lidocaine 1% 20ml Vial) 20 ml STK-MED ONCE .ROUTE ; Start 01/27/19 at 15:28; Stop 01/27/19 at 15:29; Status DC Heparin Sodium/ Sodium Chloride 1,000 ml @ As Directed STK-MED ONCE .ROUTE ; Start 01/27/19 at 15:28; Stop 01/27/19 at 15:29; Status DC Heparin Sodium/ Sodium Chloride 500 ml @ As Directed STK-MED ONCE .ROUTE ; Start 01/27/19 at 15:30; Stop 01/27/19 at 15:31; Status DC Aspirin (Children'S Aspirin) 324 mg 1X ONCE PO Last administered on 01/27/19at 15:43; Start 01/27/19 at 16:00; Stop 01/27/19 at 16:01; Status DC Heparin Sodium (Porcine) (Heparin Sodium) 4,000 unit 1X ONCE IV Last administered on 01/27/19at 15:42; Start 01/27/19 at 16:00; Stop 01/27/19 at 16:01; Status DC Aspirin (Children'S Aspirin) 324 mg 1X ONCE PO ; Start 01/27/19 at 16:00; Stop 01/27/19 at 16:01; Status UNV Lorazepam (Ativan Inj) 0.5 mg 1X ONCE IV Last administered on 01/27/19at 15:42; Start 01/27/19 at 16:00; Stop 01/27/19 at 16:01; Status DC Fentanyl Citrate (Fentanyl 2ml Vial) 100 mcg STK-MED ONCE .ROUTE ; Start 01/27/19 at 15:51; Stop 01/27/19 at 15:52; Status DC Midazolam HCl (Versed) 2 mg STK-MED ONCE .ROUTE ; Start 01/27/19 at 15:51; Stop 01/27/19 at 15:52; Status DC Heparin Sodium (Porcine) (Heparin Sodium) 10,000 unit STK-MED ONCE .ROUTE ; Start 01/27/19 at 15:51; Stop 01/27/19 at 15:52; Status DC Verapamil HCl (Verapamil) 5 mg STK-MED ONCE .ROUTE ; Start 01/27/19 at 15:51; Stop 01/27/19 at 15:52; Status DC Nitroglycerin (Nitroglycerin) 200 mcg STK-MED ONCE .ROUTE ; Start 01/27/19 at 15:51; Stop 01/27/19 at 15:52; Status DC Tirofiban/Sodium Chloride 100 ml @ As Directed STK-MED ONCE IV ; Start 01/27/19 at 16:08; Stop 01/27/19 at 16:09; Status DC Nitroglycerin (Nitroglycerin) 400 mcg 1X ONCE IART Last administered on 01/27/19at 16:44; Start 01/27/19 at 16:30; Stop 01/27/19 at 16:35; Status DC Verapamil HCl (Verapamil) 5 mg 1X ONCE IART Last administered on 01/27/19 16:46; Start 01/27/19 at 16:30; Stop 01/27/19 at 16:35; Status DC Heparin Sodium (Porcine) (Heparin Sodium) 2,500 unit 1X ONCE IART Last administered on 01/27/19at 16:48; Start 01/27/19 at 16:30; Stop 01/27/19 at 16:35; Status DC Heparin Sodium/ Sodium Chloride (HEPARIN for ARTERIAL LINE FLUSH) 1,000 unit 1X ONCE IART Last administered on 01/27/19 16:44; Start 01/27/19 at 16:30; Stop 01/27/19 at 16:35; Status DC Heparin Sodium/ Sodium Chloride (HEPARIN for ARTERIAL LINE FLUSH) 1,000 unit 1X ONCE IART Last administered on 01/27/19 16:44; Start 01/27/19 at 16:30; Stop 01/27/19 at 16:35; Status DC Midazolam HCl (Versed) 2 mg 1X ONCE IV Last administered on 01/27/19 16:46; Start 01/27/19 at 16:30; Stop 01/27/19 at 16:35; Status DC Fentanyl Citrate (Fentanyl 2ml Vial) 100 mcg 1X ONCE IV Last administered on 01/27/19 16:45; Start 01/27/19 at 16:30; Stop 01/27/19 at 16:35; Status DC Iodixanol (Visipaque 320) 100 ml 1X ONCE IART Last administered on 5/16/19at 16:46; Start 01/27/19 at 16:30; Stop 01/27/19 at 16:35; Status DC Prasugrel (Effient) 60 mg 1X ONCE PO Last administered on 01/27/19 16:45; Start 01/27/19 at 16:30; Stop 01/27/19 at 16:35; Status DC Lidocaine HCl (Lidocaine 1% 20ml Vial) 11 ml 1X ONCE INJ Last administered on 01/27/19at 16:45; Start 01/27/19 at 16:30; Stop 01/27/19 at 16:38; Status DC Tirofiban/Sodium Chloride 100 ml @ 0 mls/hr CONT PRN IV PER PROTOCOL Last administered on 01/27/19 16:16; Start 01/27/19 at 16:30; Stop 01/28/19 at 10:29; Status DC Nicotine (Nicoderm Cq 21mg) 1 patch DAILY TD Last administered on 01/29/19 08:29; Start 01/27/19 at 18:00 Hydralazine HCl (Apresoline Inj) 10 mg PRN Q4HRS PRN IVP ELEVATED BP, SEE COMMENTS Last administered on 01/28/19at 00:59; Start 01/27/19 at 19:15 Lorazepam (Ativan Inj) 0.5 mg 1X ONCE IV Last administered on 01/27/19at 21:10; Start 01/27/19 at 19:15; Stop 01/27/19 at 19:16; Status DC Ondansetron HCl (Zofran) 4 mg PRN Q6HRS PRN IV NAUSEA/VOMITING; Start 01/27/19 at 19:45 Morphine Sulfate (Morphine Sulfate) 1 mg PRN Q1HR PRN IV PAIN; Start 01/27/19 at 19:45; Stop 01/28/19 at 19:24; Status DC Magnesium Hydroxide (Milk Of Magnesia) 2,400 mg PRN Q12HR PRN PO CONSTIPATION; Start 01/27/19 at 19:45 Heparin Sodium (Porcine) (Heparin Sodium) 5,000 unit Q12HR SQ ; Start 01/28/19 at 09:00; Stop 01/28/19 at 19:24; Status DC Lisinopril (Prinivil) 2.5 mg DAILY PO Last administered on 01/29/19 08:30; Start 01/28/19 at 09:00 Prasugrel (Effient) 10 mg DAILYWBKFT PO Last administered on 01/29/19 08:28; Start 01/28/19 at 08:00 Metoprolol Tartrate (Lopressor) 12.5 mg BID PO Last administered on 01/29/19 08:29; Start 01/28/19 at 09:00 Aspirin (Ran Aspirin) 325 mg DAILYWBKFT PO Last administered on 01/28/19 09:14; Start 01/28/19 at 08:00; Stop 01/28/19 at 15:01; Status DC Acetaminophen (Tylenol) 650 mg PRN Q4HRS PRN PO HEADACHE Last administered on 01/28/19 06:57; Start 01/28/19 at 06:45 Aspirin (Ecotrin) 81 mg DAILYWBKFT PO Last administered on 01/29/19 08:28; Start 01/29/19 at 08:00 Atorvastatin Calcium (Lipitor) 40 mg QHS PO Last administered on 01/28/19 20:57; Start 01/28/19 at 21:00 Vitals/I & O Vital Sign - Last 24 Hours 01/28/19 01/28/19 01/28/19 01/28/19 10:00 11:11 12:00 12:00 Temp 98.0 98.0 Pulse 90 90 86 Resp 22 21 20 B/P (MAP) 114/75 (88) 107/75 (86) 170/111 (130) Pulse Ox 99 98 98 O2 Delivery Room Air Room Air Room Air Room Air 01/28/19 01/28/19 01/28/19 01/28/19 12:10 13:00 14:00 15:00 Pulse 96 82 76 Resp 16 15 15 15 B/P (MAP) 141/85 (103) 150/88 (108) 144/80 (101) 129/84 (99) Pulse Ox 98 95 96 O2 Delivery Room Air Room Air Room Air Room Air 01/28/19 01/28/19 01/28/19 01/28/19 16:00 19:00 20:00 20:58 Temp 98.6 98.6 Pulse 104 117 Resp 28 B/P (MAP) 134/87 (103) 134/87 O2 Delivery Room Air Room Air Room Air 01/28/19 01/28/19 01/29/19 01/29/19 23:18 23:37 03:18 07:00 Temp 99.2 98.6 98.8 99.2 98.6 98.8 Pulse 93 92 93 Resp 14 13 15 B/P (MAP) 121/71 (88) 121/81 (94) 122/63 (82) Pulse Ox 98 98 97 O2 Delivery Room Air Room Air Room Air Room Air 01/29/19 01/29/19 01/29/19 08:00 08:29 08:30 Pulse 94 92 B/P (MAP) 116/77 116/67 O2 Delivery Room Air Intake and Output 01/28/19 01/28/19 01/29/19 14:59 22:59 06:59 Intake Total 1100 ml 400 ml Output Total 501 ml 3 ml 525 ml Balance 599 ml 397 ml -525 ml JAELYN TENORIO MD January 29, 2019 09:51
--- NOTE | 2019-01-29 10:40 | PDOC ---
PROGRESS NOTES Subjective Subjective Patient denied any chest pain or shortness of breath Objective Objective Vital Signs Date Time Temp Pulse Resp B/P (MAP) Pulse Ox O2 Delivery O2 Flow Rate FiO2 01/29/19 08:30 92 116/67 01/29/19 08:00 Room Air 01/29/19 07:00 98.8 15 97 98.8 Intake and Output 01/29/19 07:00 Intake Total 1500 ml Output Total 1029 ml Balance 471 ml Intake Oral 1500 ml Output Urine Total 1027 ml Stool Total 2 ml Physical Exam Abdomen: Normal bowel sounds, Soft, No tenderness, No hepatosplenomegaly, No masses Heart: Regular rate, Normal S1, Normal S2 Extremities: No clubbing, No cyanosis, No edema, Normal pulses, No tenderness/swelling General: Alert, Oriented X3, Cooperative, No acute distress, mild distress HEENT: Atraumatic, PERRLA, EOMI, Mucous membr. moist/pink Lungs: Clear to auscultation, Normal air movement Neuro: Normal gait, Normal speech, Strength at 5/5 X4 ext, Normal tone, Sensation intact, Cranial nerves 3-12 NL, Reflexes 2+ Psych/Mental Status: Mental status NL, Mood NL Skin: No rashes, No breakdown, No significant lesion Assessment Assessment 1. Acute anterior wall myocardial infarction s/p PCI/stent to LAD, presently stable and chest pain-free. Telemetry did not show any significant arrhythmias. Continue dual antiplatelet therapy. 2. Acute diastolic heart failure secondary to AMI, clinically better compensate d. 3. Ischemic cardiomyopathy with EF 45-50%. Continue metoprolol and lisinopril 4. Hyperlipidemia: Continue statin therapy Okay for discharge from cardiac standpoint. 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 Labs Laboratory Tests Test 01/29/19 04:30 White Blood Count 10.8 x10^3/uL (4.0-11.0) Red Blood Count 4.97 x10^6/uL (4.30-5.70) Hemoglobin 15.2 g/dL (13.0-17.5) Hematocrit 46.1 % (39.0-53.0) Mean Corpuscular Volume 93 fL (79-100) Mean Corpuscular Hemoglobin 31 pg (25-35) Mean Corpuscular Hemoglobin Concent 33 g/dL (31-37) Red Cell Distribution Width 14.0 % (11.5-14.5) Platelet Count 298 x10^3/uL (140-400) Neutrophils (%) (Auto) 60 % (31-73) Lymphocytes (%) (Auto) 25 % (24-48) Monocytes (%) (Auto) 11 % (0-9) Eosinophils (%) (Auto) 3 % (0-3) Basophils (%) (Auto) 1 % (0-3) Neutrophils # (Auto) 6.5 x10^3uL (1.8-7.7) Lymphocytes # (Auto) 2.7 x10^3/uL (1.0-4.8) Monocytes # (Auto) 1.1 x10^3/uL (0.0-1.1) Eosinophils # (Auto) 0.3 x10^3/uL (0.0-0.7) Basophils # (Auto) 0.1 x10^3/uL (0.0-0.2) Sodium Level 137 mmol/L (136-145) Potassium Level 4.6 mmol/L (3.5-5.1) Chloride Level 104 mmol/L (98-107) Carbon Dioxide Level 22 mmol/L (21-32) Anion Gap 11 (6-14) Blood Urea Nitrogen 16 mg/dL (8-26) Creatinine 1.1 mg/dL (0.7-1.3) Estimated GFR (Cockcroft-Gault) 72.4 BUN/Creatinine Ratio 15 (6-20) Glucose Level 121 mg/dL (70-99) Calcium Level 8.7 mg/dL (8.5-10.1) Total Bilirubin 0.4 mg/dL (0.2-1.0) Aspartate Amino Transf (AST/SGOT) 63 U/L (15-37) Alanine Aminotransferase (ALT/SGPT) 40 U/L (16-63) Alkaline Phosphatase 74 U/L (46-116) Total Protein 7.2 g/dL (6.4-8.2) Albumin 3.2 g/dL (3.4-5.0) Albumin/Globulin Ratio 0.8 (1.0-1.7) Medications Current Medications Aspirin (Ecotrin) 81 mg DAILYWBKFT PO Last administered on 01/29/19at 08:28; Start 01/29/19 at 08:00 Atorvastatin Calcium (Lipitor) 40 mg QHS PO Last administered on 01/28/19at 20:57; Start 01/28/19 at 21:00 Vitals/I & O Vital Sign - Last 24 Hours 01/28/19 01/28/19 01/28/19 01/28/19 11:11 12:00 12:00 12:10 Temp 98.0 98.0 Pulse 90 86 96 Resp 21 20 16 B/P (MAP) 107/75 (86) 170/111 (130) 141/85 (103) Pulse Ox 98 98 98 O2 Delivery Room Air Room Air Room Air Room Air 01/28/19 01/28/19 01/28/19 01/28/19 13:00 14:00 15:00 16:00 Pulse 82 76 Resp 15 15 15 B/P (MAP) 150/88 (108) 144/80 (101) 129/84 (99) Pulse Ox 95 96 O2 Delivery Room Air Room Air Room Air Room Air 01/28/19 01/28/19 01/28/19 01/28/19 19:00 20:00 20:58 23:18 Temp 98.6 99.2 98.6 99.2 Pulse 104 117 93 Resp 28 14 B/P (MAP) 134/87 (103) 134/87 121/71 (88) O2 Delivery Room Air Room Air Room Air 01/28/19 01/29/19 01/29/19 01/29/19 23:37 03:18 07:00 08:00 Temp 98.6 98.8 98.6 98.8 Pulse 92 93 Resp 13 15 B/P (MAP) 121/81 (94) 122/63 (82) Pulse Ox 98 98 97 O2 Delivery Room Air Room Air Room Air Room Air 01/29/19 01/29/19 08:29 08:30 Pulse 94 92 B/P (MAP) 116/77 116/67 Intake and Output 01/28/19 01/28/19 01/29/19 15:00 23:00 07:00 Intake Total 1100 ml 400 ml Output Total 501 ml 3 ml 525 ml Balance 599 ml 397 ml -525 ml ERENDIRA ROBERT MD January 29, 2019 10:40
--- NOTE | 2019-01-29 11:44 | PDOC3 ---
Discharge Summary Date of Admission: January 27, 2019 Date of Discharge: January 29, 2019 Follow-Up: 3-5 days Admitting Diagnosis comment: discharge dx Assessment/Plan A/P: STEMI - given ASA, to minilab operator. Cardiology following. Will check UDS. S/p SHABANA to proximal LAD Smoker - counseled on cessation Elevated blood pressure without diagnosis of HTN - 174/111 in ED, likely from STEMI stress. Will monitor. Will need BB regardless, start metoprolol post-cath Decreased EF - will start MOHSEN if cardiology agrees Anterior STEMI treated with a 3.5/18 mm SHABANA. Acute on chronic decompensated systolic and diastolic HF Mild LV dysfunction. EF 45% hx meth abuse Recommendations FEN - Cardiac diet PPX - Heparin FULL CODE ICU admit for STEMI Ischemic cardiomyopathy with EF 45-50%. Continue metoprolol and lisinopril Hyperlipidemia: Continue statin therapy Okay for discharge from cardiac standpoint. Follow-up with vp patient in [place] where he is moving no illicit drug use 36 min d/c planning time off work for now Vitals Vitals Vital Signs Date Time Temp Pulse Resp B/P (MAP) Pulse Ox O2 Delivery O2 Flow Rate FiO2 01/29/19 08:30 92 116/67 01/29/19 08:00 Room Air 01/29/19 07:00 98.8 15 97 98.8 Physical Exam General: Alert, Oriented X3, Cooperative, No acute distress Heart: Regular rate, Normal S1, Normal S2 Lungs: Clear Abdomen: Normal bowel sounds, Soft, No tenderness, No hepatosplenomegaly, No masses Extremities: No clubbing, No cyanosis, No edema, Normal pulses, No tenderness/swelling Skin: No rashes, No breakdown, No significant lesion Labs FINAL DIAGNOSIS Problems Medical Problems: (1) STEMI (ST elevation myocardial infarction) Status: Acute Brief Hospital Course Mr. Watson is a 43 old [sex] who presented with [STEMI ] CONDITION AT DISCHARGE: Improved Discharge Medications Current Medications Iodixanol (Visipaque 320) 100 ml STK-MED ONCE .ROUTE ; Start 01/27/19 at 15:28; Stop 01/27/19 at 15:29; Status DC Lidocaine HCl (Lidocaine 1% 20ml Vial) 20 ml STK-MED ONCE .ROUTE ; Start 01/27/19 at 15:28; Stop 01/27/19 at 15:29; Status DC Heparin Sodium/ Sodium Chloride 1,000 ml @ As Directed STK-MED ONCE .ROUTE ; Start 01/27/19 at 15:28; Stop 01/27/19 at 15:29; Status DC Heparin Sodium/ Sodium Chloride 500 ml @ As Directed STK-MED ONCE .ROUTE ; Start 01/27/19 at 15:30; Stop 01/27/19 at 15:31; Status DC Aspirin (Children'S Aspirin) 324 mg 1X ONCE PO Last administered on 01/27/19at 15:43; Start 01/27/19 at 16:00; Stop 01/27/19 at 16:01; Status DC Heparin Sodium (Porcine) (Heparin Sodium) 4,000 unit 1X ONCE IV Last administered on 01/27/19at 15:42; Start 01/27/19 at 16:00; Stop 01/27/19 at 16:01; Status DC Aspirin (Children'S Aspirin) 324 mg 1X ONCE PO ; Start 01/27/19 at 16:00; Stop 01/27/19 at 16:01; Status UNV Lorazepam (Ativan Inj) 0.5 mg 1X ONCE IV Last administered on 01/27/19at 15:42; Start 01/27/19 at 16:00; Stop 01/27/19 at 16:01; Status DC Fentanyl Citrate (Fentanyl 2ml Vial) 100 mcg STK-MED ONCE .ROUTE ; Start 01/27/19 at 15:51; Stop 01/27/19 at 15:52; Status DC Midazolam HCl (Versed) 2 mg STK-MED ONCE .ROUTE ; Start 01/27/19 at 15:51; Stop 01/27/19 at 15:52; Status DC Heparin Sodium (Porcine) (Heparin Sodium) 10,000 unit STK-MED ONCE .ROUTE ; Start 01/27/19 at 15:51; Stop 01/27/19 at 15:52; Status DC Verapamil HCl (Verapamil) 5 mg STK-MED ONCE .ROUTE ; Start 01/27/19 at 15:51; Stop 01/27/19 at 15:52; Status DC Nitroglycerin (Nitroglycerin) 200 mcg STK-MED ONCE .ROUTE ; Start 01/27/19 at 15:51; Stop 01/27/19 at 15:52; Status DC Tirofiban/Sodium Chloride 100 ml @ As Directed STK-MED ONCE IV ; Start 01/27/19 at 16:08; Stop 01/27/19 at 16:09; Status DC Nitroglycerin (Nitroglycerin) 400 mcg 1X ONCE IART Last administered on 01/27/19 16:44; Start 01/27/19 at 16:30; Stop 01/27/19 at 16:35; Status DC Verapamil HCl (Verapamil) 5 mg 1X ONCE IART Last administered on 01/27/19 16:46; Start 01/27/19 at 16:30; Stop 01/27/19 at 16:35; Status DC Heparin Sodium (Porcine) (Heparin Sodium) 2,500 unit 1X ONCE IART Last administered on 01/27/19 16:48; Start 01/27/19 at 16:30; Stop 01/27/19 at 16:35; Status DC Heparin Sodium/ Sodium Chloride (HEPARIN for ARTERIAL LINE FLUSH) 1,000 unit 1X ONCE IART Last administered on 01/27/19 16:44; Start 01/27/19 at 16:30; Stop 01/27/19 at 16:35; Status DC Heparin Sodium/ Sodium Chloride (HEPARIN for ARTERIAL LINE FLUSH) 1,000 unit 1X ONCE IART Last administered on 01/27/19 16:44; Start 01/27/19 at 16:30; Stop 01/27/19 at 16:35; Status DC Midazolam HCl (Versed) 2 mg 1X ONCE IV Last administered on 01/27/19 16:46; Start 01/27/19 at 16:30; Stop 01/27/19 at 16:35; Status DC Fentanyl Citrate (Fentanyl 2ml Vial) 100 mcg 1X ONCE IV Last administered on 01/27/19 16:45; Start 01/27/19 at 16:30; Stop 01/27/19 at 16:35; Status DC Iodixanol (Visipaque 320) 100 ml 1X ONCE IART Last administered on 01/27/19 16:46; Start 01/27/19 at 16:30; Stop 01/27/19 at 16:35; Status DC Prasugrel (Effient) 60 mg 1X ONCE PO Last administered on 01/27/19 16:45; Start 01/27/19 at 16:30; Stop 01/27/19 at 16:35; Status DC Lidocaine HCl (Lidocaine 1% 20ml Vial) 11 ml 1X ONCE INJ Last administered on 01/27/19at 16:45; Start 01/27/19 at 16:30; Stop 01/27/19 at 16:38; Status DC Tirofiban/Sodium Chloride 100 ml @ 0 mls/hr CONT PRN IV PER PROTOCOL Last administered on 01/27/19at 16:16; Start 01/27/19 at 16:30; Stop 01/28/19 at 10:29; Status DC Nicotine (Nicoderm Cq 21mg) 1 patch DAILY TD Last administered on 01/29/19at 08:29; Start 01/27/19 at 18:00 Hydralazine HCl (Apresoline Inj) 10 mg PRN Q4HRS PRN IVP ELEVATED BP, SEE COMMENTS Last administered on 01/28/19at 00:59; Start 01/27/19 at 19:15 Lorazepam (Ativan Inj) 0.5 mg 1X ONCE IV Last administered on 01/27/19at 21:10; Start 01/27/19 at 19:15; Stop 01/27/19 at 19:16; Status DC Ondansetron HCl (Zofran) 4 mg PRN Q6HRS PRN IV NAUSEA/VOMITING; Start 01/27/19 at 19:45 Morphine Sulfate (Morphine Sulfate) 1 mg PRN Q1HR PRN IV PAIN; Start 01/27/19 at 19:45; Stop 01/28/19 at 19:24; Status DC Magnesium Hydroxide (Milk Of Magnesia) 2,400 mg PRN Q12HR PRN PO CONSTIPATION; Start 01/27/19 at 19:45 Heparin Sodium (Porcine) (Heparin Sodium) 5,000 unit Q12HR SQ ; Start 01/28/19 at 09:00; Stop 01/28/19 at 19:24; Status DC Lisinopril (Prinivil) 2.5 mg DAILY PO Last administered on 01/29/19at 08:30; Start 01/28/19 at 09:00 Prasugrel (Effient) 10 mg DAILYWBKFT PO Last administered on 01/29/19at 08:28; Start 01/28/19 at 08:00 Metoprolol Tartrate (Lopressor) 12.5 mg BID PO Last administered on 5/18/19at 08:29; Start 01/28/19 at 09:00 Aspirin (Ran Aspirin) 325 mg DAILYWBKFT PO Last administered on 01/28/19at 09:14; Start 01/28/19 at 08:00; Stop 01/28/19 at 15:01; Status DC Acetaminophen (Tylenol) 650 mg PRN Q4HRS PRN PO HEADACHE Last administered on 01/28/19 06:57; Start 01/28/19 at 06:45 Aspirin (Ecotrin) 81 mg DAILYWBKFT PO Last administered on 01/29/19at 08:28; Start 01/29/19 at 08:00 Atorvastatin Calcium (Lipitor) 40 mg QHS PO Last administered on 01/28/19at 20:57; Start 01/28/19 at 21:00 Vital Signs Vital Signs Date Time Temp Pulse Resp B/P (MAP) Pulse Ox O2 Delivery O2 Flow Rate FiO2 01/29/19 08:30 92 116/67 01/29/19 08:00 Room Air 01/29/19 07:00 98.8 15 97 98.8 Labs Laboratory Tests Test 01/27/19 15:29 01/27/19 15:30 01/27/19 16:07 01/27/19 17:55 Bedside Troponin I 0.05 ng/ml (<0.08) Prothrombin Time 12.5 SEC (11.7-14.0) Prothromb Time International Ratio 1.0 (0.8-1.1) Sodium Level 140 mmol/L (136-145) Potassium Level 4.5 mmol/L (3.5-5.1) Chloride Level 103 mmol/L (98-107) Carbon Dioxide Level 24 mmol/L (21-32) Anion Gap 13 (6-14) Blood Urea Nitrogen 18 mg/dL (8-26) Creatinine 1.3 mg/dL (0.7-1.3) Estimated GFR (Cockcroft-Gault) 59.7 BUN/Creatinine Ratio 14 (6-20) Glucose Level 137 mg/dL (70-99) Calcium Level 9.0 mg/dL (8.5-10.1) Magnesium Level 1.9 mg/dL (1.8-2.4) Total Bilirubin 0.4 mg/dL (0.2-1.0) Aspartate Amino Transf (AST/SGOT) 18 U/L (15-37) Alanine Aminotransferase (ALT/SGPT) 27 U/L (16-63) Alkaline Phosphatase 89 U/L (46-116) Creatine Kinase 109 U/L (39-308) Creatine Kinase MB (Mass) 1.1 ng/mL (0.0-3.6) Creatine Kinase MB Relative Index 1.0 % (0-4) Troponin I Quantitative 0.058 ng/mL (0.000-0.055) 22.854 ng/mL (0.000-0.055) WW-Msn-Y-Type Natriuretic Peptide 374 pg/mL (0-124) Total Protein 7.8 g/dL (6.4-8.2) Albumin 3.6 g/dL (3.4-5.0) Albumin/Globulin Ratio 0.9 (1.0-1.7) Lipase 101 U/L (73-393) Activated Clotting Time 225 sec (92-181) White Blood Count 10.7 x10^3/uL (4.0-11.0) Red Blood Count 4.83 x10^6/uL (4.30-5.70) Hemoglobin 14.8 g/dL (13.0-17.5) Hematocrit 44.7 % (39.0-53.0) Mean Corpuscular Volume 93 fL (79-100) Mean Corpuscular Hemoglobin 31 pg (25-35) Mean Corpuscular Hemoglobin Concent 33 g/dL (31-37) Red Cell Distribution Width 13.9 % (11.5-14.5) Platelet Count 314 x10^3/uL (140-400) Neutrophils (%) (Auto) 72 % (31-73) Lymphocytes (%) (Auto) 20 % (24-48) Monocytes (%) (Auto) 6 % (0-9) Eosinophils (%) (Auto) 2 % (0-3) Basophils (%) (Auto) 1 % (0-3) Neutrophils # (Auto) 7.7 x10^3uL (1.8-7.7) Lymphocytes # (Auto) 2.1 x10^3/uL (1.0-4.8) Monocytes # (Auto) 0.6 x10^3/uL (0.0-1.1) Eosinophils # (Auto) 0.2 x10^3/uL (0.0-0.7) Basophils # (Auto) 0.1 x10^3/uL (0.0-0.2) Test 01/27/19 22:00 01/28/19 05:00 01/29/19 04:30 Troponin I Quantitative 54.492 ng/mL (0.000-0.055) Urine Opiates Screen Neg (NEG) Urine Methadone Screen Neg (NEG) Urine Barbiturates Neg (NEG) Urine Phencyclidine Screen Neg (NEG) Urine Amphetamine/Methamphetamine Neg (NEG) Urine Benzodiazepines Screen Pos (NEG) Urine Cocaine Screen Neg (NEG) Urine Cannabinoids Screen Neg (NEG) Urine Ethyl Alcohol Neg (NEG) White Blood Count 11.8 x10^3/uL (4.0-11.0) 10.8 x10^3/uL (4.0-11.0) Red Blood Count 4.98 x10^6/uL (4.30-5.70) 4.97 x10^6/uL (4.30-5.70) Hemoglobin 15.2 g/dL (13.0-17.5) 15.2 g/dL (13.0-17.5) Hematocrit 45.6 % (39.0-53.0) 46.1 % (39.0-53.0) Mean Corpuscular Volume 92 fL (79-100) 93 fL (79-100) Mean Corpuscular Hemoglobin 31 pg (25-35) 31 pg (25-35) Mean Corpuscular Hemoglobin Concent 33 g/dL (31-37) 33 g/dL (31-37) Red Cell Distribution Width 14.2 % (11.5-14.5) 14.0 % (11.5-14.5) Platelet Count 321 x10^3/uL (140-400) 298 x10^3/uL (140-400) Neutrophils (%) (Auto) 71 % (31-73) 60 % (31-73) Lymphocytes (%) (Auto) 18 % (24-48) 25 % (24-48) Monocytes (%) (Auto) 9 % (0-9) 11 % (0-9) Eosinophils (%) (Auto) 2 % (0-3) 3 % (0-3) Basophils (%) (Auto) 0 % (0-3) 1 % (0-3) Neutrophils # (Auto) 8.4 x10^3uL (1.8-7.7) 6.5 x10^3uL (1.8-7.7) Lymphocytes # (Auto) 2.1 x10^3/uL (1.0-4.8) 2.7 x10^3/uL (1.0-4.8) Monocytes # (Auto) 1.1 x10^3/uL (0.0-1.1) 1.1 x10^3/uL (0.0-1.1) Eosinophils # (Auto) 0.2 x10^3/uL (0.0-0.7) 0.3 x10^3/uL (0.0-0.7) Basophils # (Auto) 0.0 x10^3/uL (0.0-0.2) 0.1 x10^3/uL (0.0-0.2) Sodium Level 138 mmol/L (136-145) 137 mmol/L (136-145) Potassium Level 3.8 mmol/L (3.5-5.1) 4.6 mmol/L (3.5-5.1) Chloride Level 105 mmol/L (98-107) 104 mmol/L (98-107) Carbon Dioxide Level 20 mmol/L (21-32) 22 mmol/L (21-32) Anion Gap 13 (6-14) 11 (6-14) Blood Urea Nitrogen 14 mg/dL (8-26) 16 mg/dL (8-26) Creatinine 1.0 mg/dL (0.7-1.3) 1.1 mg/dL (0.7-1.3) Estimated GFR (Cockcroft-Gault) 80.8 72.4 Glucose Level 164 mg/dL (70-99) 121 mg/dL (70-99) Calcium Level 8.0 mg/dL (8.5-10.1) 8.7 mg/dL (8.5-10.1) Triglycerides Level 113 mg/dL (0-150) Cholesterol Level 148 mg/dL (0-200) LDL Cholesterol, Calculated 92 mg/dL (0-100) VLDL Cholesterol, Calculated 23 mg/dL (0-40) Non-HDL Cholesterol Calculated 115 mg/dL (0-129) HDL Cholesterol 33 mg/dL (40-60) Cholesterol/HDL Ratio 4.5 BUN/Creatinine Ratio 15 (6-20) Total Bilirubin 0.4 mg/dL (0.2-1.0) Aspartate Amino Transf (AST/SGOT) 63 U/L (15-37) Alanine Aminotransferase (ALT/SGPT) 40 U/L (16-63) Alkaline Phosphatase 74 U/L (46-116) Total Protein 7.2 g/dL (6.4-8.2) Albumin 3.2 g/dL (3.4-5.0) Albumin/Globulin Ratio 0.8 (1.0-1.7) Laboratory Tests Test 01/29/19 04:30 White Blood Count 10.8 x10^3/uL (4.0-11.0) Red Blood Count 4.97 x10^6/uL (4.30-5.70) Hemoglobin 15.2 g/dL (13.0-17.5) Hematocrit 46.1 % (39.0-53.0) Mean Corpuscular Volume 93 fL (79-100) Mean Corpuscular Hemoglobin 31 pg (25-35) Mean Corpuscular Hemoglobin Concent 33 g/dL (31-37) Red Cell Distribution Width 14.0 % (11.5-14.5) Platelet Count 298 x10^3/uL (140-400) Neutrophils (%) (Auto) 60 % (31-73) Lymphocytes (%) (Auto) 25 % (24-48) Monocytes (%) (Auto) 11 % (0-9) Eosinophils (%) (Auto) 3 % (0-3) Basophils (%) (Auto) 1 % (0-3) Neutrophils # (Auto) 6.5 x10^3uL (1.8-7.7) Lymphocytes # (Auto) 2.7 x10^3/uL (1.0-4.8) Monocytes # (Auto) 1.1 x10^3/uL (0.0-1.1) Eosinophils # (Auto) 0.3 x10^3/uL (0.0-0.7) Basophils # (Auto) 0.1 x10^3/uL (0.0-0.2) Sodium Level 137 mmol/L (136-145) Potassium Level 4.6 mmol/L (3.5-5.1) Chloride Level 104 mmol/L (98-107) Carbon Dioxide Level 22 mmol/L (21-32) Anion Gap 11 (6-14) Blood Urea Nitrogen 16 mg/dL (8-26) Creatinine 1.1 mg/dL (0.7-1.3) Estimated GFR (Cockcroft-Gault) 72.4 BUN/Creatinine Ratio 15 (6-20) Glucose Level 121 mg/dL (70-99) Calcium Level 8.7 mg/dL (8.5-10.1) Total Bilirubin 0.4 mg/dL (0.2-1.0) Aspartate Amino Transf (AST/SGOT) 63 U/L (15-37) Alanine Aminotransferase (ALT/SGPT) 40 U/L (16-63) Alkaline Phosphatase 74 U/L (46-116) Total Protein 7.2 g/dL (6.4-8.2) Albumin 3.2 g/dL (3.4-5.0) Albumin/Globulin Ratio 0.8 (1.0-1.7) Allergies Allergies Coded Allergies Type Severity Reaction Last Updated Verified No Known Drug Allergies 01/27/19 No Disposition/Orders: D/C to Home Patient Instructions D/C PLANNING 36 MIN JAELYN TENORIO MD January 29, 2019 11:44
[2019-01-29] MEDS ORDERED: ATOR40TA59 PO (11:47)
[2019-01-29] MEDS ORDERED: LISI-338 PO (11:47)
[2019-01-29] MEDS ORDERED: PRAS10TA9 PO (11:47)
[2019-01-29] MEDS ORDERED: METO25TA4 PO (11:47)
[2019-01-29] MEDS ORDERED: ASPI-612 PO (11:47)
[2019-01-29] MEDS ORDERED: MAGN400O7 PO (11:47)
--- NOTE | 2019-01-29 11:51 | DISCH ---
DISCHARGE INSTRUCTIONS Condition on Discharge Condition on Discharge: Stable Activity After Discharge Activity Instructions for Disc: Avoid exertion Lifting Instructions after Dis: No heavy lifting, No pulling or pushing Exercise Instruction after Dis: Walk 10 min, 3 x per day Driving Instructions after Dis: Do not drive Diet after Discharge Diet after Discharge: Cardiac Checks after Discharge Checks after discharge: Check blood press - daily Contacting the DRKp after DC Call your doctor for: If your condition worsens JAELYN TENORIO MD January 29, 2019 11:51
[2019-01-29 12:10] LABS: HEMOGLOBIN A1C 5.9 % (4.8-5.6)
--- NOTE | 2019-01-29 12:30 | NUR ---
Discharge Note: [facility] [place] [facility] Discharge instructions and discharge home medications reviewed with Patient and a copy given. All questions have been answered and understanding verbalized. The following instructions and handouts were given: MEDICATIONS, ACTIVITY, DIET Discontinued lines and drains: Peripheral IV intact. PIV R AC Patient discharged to Home or Self Care [facility] WITH IN PRIVATE VEHICLE. DRIVING.
== END 2019-01-29 12:00 | disposition home or self-care (01) | DRG 246 ==
LOC: ER 15:18 → 1 WEST ICU 16:09
PROVIDERS: ADMIT Internal Medicine; ATTEND Internal Medicine
PROC: 027034Z Dilation of Coronary Artery, One Artery with Drug-eluting Intraluminal Device, Percutaneous Approach (ICD-10-PCS; principal; 2019-01-27)
PROC: 4A023N7 Measurement of Cardiac Sampling and Pressure, Left Heart, Percutaneous Approach (ICD-10-PCS; 2019-01-27)
PROC: B2151ZZ Fluoroscopy of Left Heart using Low Osmolar Contrast (ICD-10-PCS; 2019-01-27)
PROC: B2111ZZ Fluoroscopy of Multiple Coronary Arteries using Low Osmolar Contrast (ICD-10-PCS; 2019-01-27)
DX: I21.02 ST elevation (STEMI) myocardial infarction involving left anterior descending coronary artery (principal); I50.43 Acute on chronic combined systolic (congestive) and diastolic (congestive) heart failure; E78.5 Hyperlipidemia, unspecified; F17.210 Nicotine dependence, cigarettes, uncomplicated; F15.10 Other stimulant abuse, uncomplicated; I25.5 Ischemic cardiomyopathy; Z82.49 Family history of ischemic heart disease and other diseases of the circulatory system; Z98.61 Coronary angioplasty status; Z79.899 Other long term (current) drug therapy; Z87.81 Personal history of (healed) traumatic fracture; Z71.6 Tobacco abuse counseling; Z71.51 Drug abuse counseling and surveillance of drug abuser; I11.0 Hypertensive heart disease with heart failure
CPT/HCPCS: 92941; 93458; 99291; G0269; 36415; 71045; 80048; 80053; 80061; 80307; 82553; 83036; 83690; 83735; 83880; 84484; 85025; 85347; 85610; 93005; 93306; 96374; 96375; 99152; 99153; C1725; C1760; C1769; C1874; C1887; C1892; J0360; J1644; J2060; J2250; J3010; J3490; Q9967; C1771; J3246